=== PATIENT | female | born 1945 | race Caucasian/White ===

== ENCOUNTER 2016-12-26 21:30 | Inpatient (IN) | payer OTHER ==
[~2016-12-26] VITALS: Ht 152.4 cm; Wt 72.6 kg
--- NOTE | 2016-12-26 21:37 | NUR ---
71 YEAR OLD FEMALE BIBA FROM HOME C/O GENERALIZED WEAKNESS, N/V. EMS REPORTS PT HAD EPSIODE OF VOMITING AT 1600. PER EMS PT FOUND TO BE 92% ON RA AT HOME WITH IMPROVEMENT TO 95% VIA NC. FAMILY REPORTS PT IS BASELINE DEMENTIA BUT FEELS SHE IS MORE CONFUSED TODAY.
--- NOTE | 2016-12-26 21:40 | NUR ---
TEMP 100.9. CONGESTED COUGH NOTED. 94% ON RA WITH PULSE OX ON RT THUMB
--- NOTE | 2016-12-26 21:42 | ED GENERAL ADULT ---
History of Present Illness General Chief Complaint: General Adult Stated Complaint: BIBA, WEAKNESS Source: family Exam Limitations: confusion, dementia Vital Signs & Intake/Output Vital Signs & Intake/Output Vital Signs Date Time Temp Pulse Resp B/P Pulse O2 O2 Flow FiO2 Ox Delivery Rate 12/27 0003 100.5 85 18 134/64 96 Nasal 2.5L Cannula 12/27 0002 100.5 12/26 2247 96 Nasal 2.0L Cannula 12/265 102.0 87 16 140/80 96 Nasal 2.0L Cannula 12/26 2235 100.9 12/26 2139 100.9 92 20 146/66 94 Room Air ED Intake and Output 12/27 0000 12/26 1200 Intake Total 1000 Output Total Balance 1000 Intake, IV 1000 Patient 160 lb Weight Allergies Coded Allergies: No Known Drug Allergies (12/26/16) Reconcile Medications Alendronate Sodium 70 MG TABLET 1 TAB PO DAILY OSTEOPOROSIS (Reported) Amlodipine Besylate 2.5 MG TABLET 1 TAB PO QAM HTN (Reported) Atorvastatin Calcium 20 MG TABLET 1 TAB PO QHS CHOLESTEROL (Reported) Cholecalciferol (Vitamin D3) (Vitamin D) 2,000 UNIT CAPSULE 1 TAB PO DAILY SUPP (Reported) Metoprolol Tartrate 50 MG TABLET 1 TAB PO BID HTN (Reported) Sertraline HCl 25 MG TABLET 1 TAB PO DAILY DEPRESSION (Reported) Triage Note: 71 YEAR OLD FEMALE TANESHA FROM HOME C/O GENERALIZED WEAKNESS, N/V. EMS REPORTS PT HAD EPSIODE OF VOMITING AT 1600. PER EMS PT FOUND TO BE 92% ON RA AT HOME WITH IMPROVEMENT TO 95% VIA NC. FAMILY REPORTS PT IS BASELINE DEMENTIA BUT FEELS SHE IS MORE CONFUSED TODAY. Triage Nurses Notes Reviewed? yes Onset: Gradual Duration: getting worse Timing: recent history Severity: moderate Severity Numbers: 5 HPI: Patient is a 71-year-old female with a past medical history of hypertension hyperlipidemia and dementia which patient is Romansh speaking only however patient does present with family member-daughter who they both live in a private residence together which daughters concerned of a one day history of coughing and increased confusion and generalized weakness and fatigue. Patient did have one episode today of vomiting. Patient has had decreased by mouth intake. History is limited due to patient having as above stated past medical history and clinical presentation. No medications given for symptoms. Denies any similar sick contacts. (VISHAL MCDONALD,ANA PAULA) Past History Travel History Traveled to [place] past 21 day No Medical History Any Pertinent Medical History? see below for history Cardiovascular: hypertension, hyperlipidemia Other Medical Hx: DEMENTIA Surgical History Surgical History: non-contributory Family History Hx Contributory? No (ANA PAULA VALENTIN) Review of Systems Review of Systems Constitutional: Reports: see HPI, fever. EENTM: Reports: no symptoms. Respiratory: Reports: see HPI, cough. Cardiovascular: Reports: no symptoms. GI: Reports: see HPI, vomiting. Denies: abdominal pain. Genitourinary: Reports: no symptoms. Musculoskeletal: Reports: no symptoms. Skin: Reports: no symptoms. Neurological/Psychological: Reports: no symptoms. Hematologic/Endocrine: Reports: no symptoms. Immunologic/Allergic: Reports: no symptoms. All Other Systems: Reviewed and Negative (ANA PAULA VALENTIN) Physical Exam Physical Exam General Appearance: no apparent distress, alert, comfortable Respiratory: no respiratory distress, quiet respiration, decreased breath sounds Comments: HEENT: Normal EENT exam, extraocular motion intact, no nystagmus. Pupils equally round and reactive to light and accommodation. Nose is atraumatic. External auditory canal and Tympanic membranes clear. Pharynx normal. No swelling or edema. Neck: Supple, no lymphadenopathy, normal range of motion without pain or tenderness Back: Nontender, no CVA tenderness. Cardiovascular: Regular rate and rhythms no murmurs rubs or gallops, normal JVP Abdomen: Mild wincing noted upon abdominal palpation nondistended, no appreciable organomegaly. Normal bowel sounds. No ascites Extremity: No edema, no calf tenderness to palpation, normal and equal pulses. Neuro: Alert ORIENTED X 0, motor sensory normal, Skin: No appreciable rash on exposed skin, skin is warm and dry. Psych: Mood and affect is normal, memory and judgment is normal. Core Measures ACS in differential dx? No CVA/TIA Diagnosis: No Severe Sepsis Present: No Septic Shock Present: No (ANA PAULA VALENTIN) Progress Differential Diagnoses I considered the following diagnoses in my evaluation of the patient: [Sepsis, appendicitis, mesenteric ischemia, upper rest for infection, pneumonia, viral syndrome, cholecystitis, pancreatitis, diverticulitis,] Plan of Care: Orders Procedure Date/time Status LACTIC ACID 12/27 0104 Active Patient Data 12/27 0053 Active Admit to inpatient 12/27 0040 Active Admit to inpatient 12/27 0031 Active LOWER RESPIRATORY CULTURE 03/07 2206 Active RAPID VIRAL INFLUENZA A 12/26 2204 Complete CULTURE,URINE 12/27 2203 Active BLOOD CULTURE 12/27 2203 Active TROPONIN LEVEL 12/27 2203 Complete LIPASE 12/27 2203 Complete LACTIC ACID 12/27 2203 Complete COMPREHENSIVE METABOLIC PANEL 12/27 2203 Complete CBC WITHOUT DIFFERENTIAL 12/27 2203 Complete AMYLASE 12/27 2203 Complete URINALYSIS 12/26 2202 Complete Current Medications Sig/[place] Start time Last Medication Dose Stop Time Status Admin Azithromycin 500 MG ONCE ONE 12/27 0030 AC (Zithromax) 12/27 012 Dextrose/Water 250 ML (D5W) Laboratory Tests 12/26/162237: Anion Gap 12, Estimated GFR > 60, BUN/Creatinine Ratio 20.0, Glucose 173 H, Lactic Acid 1.2, Calcium 9.3, Total Bilirubin 0.4, AST 47 H, ALT 58 H, Alkaline Phosphatase 61, Troponin I < 0.01, Total Protein 7.9, Albumin 4.4, Globulin 3.5, Albumin/Globulin Ratio 1.3, Amylase 77, Lipase 154, CBC w Diff NO MAN DIFF REQ, RBC 3.81 L, MCV 87.4, MCH 29.4, RDW 14.9 H, MPV 8.7, Gran % 81.8 H, Lymphocytes % 11.7 L, Monocytes % 5.7, Eosinophils % 0.5, Basophils % 0.3, Absolute Granulocytes 12.4 H, Absolute Lymphocytes 1.8, Absolute Monocytes 0.9 H, Absolute Eosinophils 0.1, Absolute Basophils 0, PUBS MCHC 33.7 12/26/162203: Urinalysis LIGHT H, Urine Color YEL, Urine Clarity HAZY H, Urine pH 6.0, Ur Specific [place] >= 1.030, Urine Protein 100 H, Urine Ketones NEG, Urine Nitrite NEG, Urine Bilirubin NEG, Urine Urobilinogen 0.2, Ur Leukocyte Esterase NEG, Ur Microscopic SEDIMENT EXAMINED, Urine RBC 1-3, Urine WBC RARE, Ur Epithelial Cells FEW, Urine Bacteria RARE H, Urine Mucus FEW, Urine Hemoglobin MOD H, Urine Glucose NEG Microbiology 12/26 2244 NASOPHARYN: Influenza Virus A & B Rapid Smear - COMP 12/27 2239 BLOOD: Blood Culture - RECD 12/26 2229 BLOOD: Blood Culture - RECD 12/26 2205 LOWER RESP: Respiratory Culture - ORD 12/26 2205 LOWER RESP: Gram Stain - ORD 12/27 2203 URINE ROUT: Urine Culture - RECD Patient currently is in no apparent distress. Patient was able to follow commands and no concerns at this time of TIA or CVA. Patient was noted to have fever Patient was given IV fluid resuscitation and IV acetaminophen and Zofran. I discussed results of chest x-ray and blood and urine with daughter in which at this time there is no source of patient's clinical presentation. CT scan currently is pending CT scan was remarkable for concerns of left lobe pneumonia. Discussed disposition and plan with family member who agrees. (VISHAL MCDONALD,ANA PAULA) Diagnostic Imaging: Viewed by Me: Radiology Read, CT Scan. Radiology Impression: SEE COMMENTS Initial ED EKG: none Comments: PATIENT: SRIKANTH CUEVAS PRESENT AGE: 71 PATIENT ACCOUNT NO: [id number] : 43 LOCATION: [facility] ORDERING PHYSICIAN: ANA PAULA MCDONALD SERVICE DATE: 12/26/16 EXAM TYPE: CAT - CT ABD & PELVIS W IV CONTRAST EXAMINATION: CT ABDOMEN AND PELVIS WITH CONTRAST CLINICAL INFORMATION: Fever, abdominal pain COMPARISON: None TECHNIQUE: Multidetector volumetric imaging was performed of the abdomen and pelvis before and after the IV administration of 93 mL of Optiray 320 intravenous contrast. Sagittal and coronal reformatted images were obtained on the technologist's workstation. DLP: 458.39 mGy-cm FINDINGS: LUNG BASES: There are patchy regions of consolidation in the lingula and left lower lobe, suspicious for pneumonia. LIVER, GALLBLADDER, AND BILIARY TREE: The liver is normal in size, shape, and attenuation. No focal hepatic lesion or biliary ductal dilatation is present. The gallbladder is unremarkable. PANCREAS: Unremarkable. SPLEEN: Unremarkable. ADRENAL GLANDS: Unremarkable. KIDNEYS AND URETERS: The kidneys are normal in size, shape, and attenuation. No hydronephrosis, hydroureter, or calculi seen. No perinephric stranding. BLADDER: Unremarkable. GASTROINTESTINAL TRACT: No evidence of bowel obstruction. No abnormal bowel wall thickening is seen, although assessment in some segments of the colon is limited due to luminal decompression. No appreciable pericolonic inflammation. There is a moderate to large amount of stool in the rectum. The appendix is suspected to be collapsed. No free fluid or free air is seen. ABDOMINAL WALL: No significant hernia is appreciated. LYMPH NODES: Normal. VASCULAR: Scattered atherosclerotic calcifications are present. PELVIC VISCERA: Unremarkable. OSSEOUS STRUCTURES: Degenerative changes are noted in the spine. IMPRESSION: 1. Patchy regions of pulmonary consolidation in the lingula and left lower lobe, suspicious for pneumonia. 2. Moderate to large amount of stool in the rectum, which could reflect fecal impaction. No evidence of bowel obstruction or inflammation. DICTATED BY: MARII AMBRIZ MD DATE/TIME DICTATED:12/27/166 VICE PRESIDENT SAFETY:DORIS DATE/TIME TRANSCRIBED:12/27/166 PATIENT: SRIKANTH CUEVAS PRESENT AGE: 71 PATIENT ACCOUNT NO: [id number] : 43 LOCATION: [facility] ORDERING PHYSICIAN: ANA PAULA MCDONALD SERVICE DATE: 12/26/16 EXAM TYPE: CAT - CT ABD & PELVIS W IV CONTRAST EXAMINATION: CT ABDOMEN AND PELVIS WITH CONTRAST CLINICAL INFORMATION: Fever, abdominal pain COMPARISON: None TECHNIQUE: Multidetector volumetric imaging was performed of the abdomen and pelvis before and after the IV administration of 93 mL of Optiray 320 intravenous contrast. Sagittal and coronal reformatted images were obtained on the technologist's workstation. DLP: 458.39 mGy-cm FINDINGS: LUNG BASES: There are patchy regions of consolidation in the lingula and left lower lobe, suspicious for pneumonia. LIVER, GALLBLADDER, AND BILIARY TREE: The liver is normal in size, shape, and attenuation. No focal hepatic lesion or biliary ductal dilatation is present. The gallbladder is unremarkable. PANCREAS: Unremarkable. SPLEEN: Unremarkable. ADRENAL GLANDS: Unremarkable. KIDNEYS AND URETERS: The kidneys are normal in size, shape, and attenuation. No hydronephrosis, hydroureter, or calculi seen. No perinephric stranding. BLADDER: Unremarkable. GASTROINTESTINAL TRACT: No evidence of bowel obstruction. No abnormal bowel wall thickening is seen, although assessment in some segments of the colon is limited due to luminal decompression. No appreciable pericolonic inflammation. There is a moderate to large amount of stool in the rectum. The appendix is suspected to be collapsed. No free fluid or free air is seen. ABDOMINAL WALL: No significant hernia is appreciated. LYMPH NODES: Normal. VASCULAR: Scattered atherosclerotic calcifications are present. PELVIC VISCERA: Unremarkable. OSSEOUS STRUCTURES: Degenerative changes are noted in the spine. IMPRESSION: 1. Patchy regions of pulmonary consolidation in the lingula and left lower lobe, suspicious for pneumonia. 2. Moderate to large amount of stool in the rectum, which could reflect fecal impaction. No evidence of bowel obstruction or inflammation. PATIENT: SRIKANTH CUEVAS PRESENT AGE: 71 PATIENT ACCOUNT NO: [id number] : 43 LOCATION: [facility] ORDERING PHYSICIAN: ANA PAULA MCDONALD SERVICE DATE: 12/26/16 EXAM TYPE: RAD - XRY-CHEST XRAY, PA AND LATERAL EXAMINATION: XR CHEST CLINICAL INFORMATION: Cough and fever. COMPARISON: None TECHNIQUE: 2 views of the chest were obtained. FINDINGS: Heart size is enlarged. No pulmonary vascular congestion. Lungs are clear. No pleural effusion or pneumothorax. IMPRESSION: Cardiomegaly. No acute change of the chest. (ANA PAULA VALENTIN) Departure Departure Disposition: STILL A PATIENT Condition: Stable Clinical Impression Primary Impression: Pneumonia Referrals: LUDMILA SINGH (PCP/Family) Departure Forms: Customer Survey General Discharge Information Admission Note [facility] Documentation of Exam: Documentation of any treatments & extenuating circumstances including Concerns Regarding Discharge (functional status, medication knowledge or non-compliance, living conditions, etc.) that warrant an admission rather than observation: [ Discussed patient with Dr. PARTIDA who agrees with general medicine admission for current concerns of pneumonia, patient requires IV antibiotics, IV fluid resuscitation repeat labs. Outpatient treatment at this time would be medically harmful] (ANA PAULA VALENTIN) PA/LOAD DISPATCHER Co-Sign Statement Statement: ED Attending supervision documentation- [X] I saw and evaluated the patient. I have also reviewed all the pertinent lab results and diagnostic results. I agree with the findings and the plan of care as documented in the PA's/LOAD DISPATCHER's documentation. [X] I have reviewed the ED Record and agree with the PA's/LOAD DISPATCHER's documentation. [] Additions or exceptions (if any) to the PAs/LOAD DISPATCHER's note and plan are summarized below: [] (JAME LUO,ÁNGEL Lozada) Critical Care Note Critical Care Note Critical Care Time: non-applicable (ANA PAULA VALENTIN)
--- NOTE | 2016-12-26 22:13 | NUR ---
PT TO RADIOLOGY VIA STRETCHER AND INFORMED OF LABS AND MEDICATIONS ORDERED UPON RETURN
--- NOTE | 2016-12-26 22:34 | RADIOLOGY REPORT ---
EXAMINATION: XR CHEST CLINICAL INFORMATION: Cough and fever. COMPARISON: None TECHNIQUE: 2 views of the chest were obtained. FINDINGS: Heart size is enlarged. No pulmonary vascular congestion. Lungs are clear. No pleural effusion or pneumothorax. IMPRESSION: Cardiomegaly. No acute change of the chest.
--- NOTE | 2016-12-26 22:50 | NUR ---
IV ESTABLISHED, NS IVF BOLUS RUNNING AND MEDICATED WITH ZOFRAN AND TYLENOL PER EMAR FOR FEVER 102.0. SINUS RATE 80'S ON CM. NO ACTIVE VOMITING AT THIS TIME. TITRATION TO 2LNC TOLERATED WELL O2 SAT 96-97%. NO ACUTE RESP DISTRESS, WET COUGH NOTED WITHOUT EXPECTORATION OF SPUTUM. FLU SWAB OBTAINED AND SENT TO LAB. LABS DRAWN AND SENT (BLUE, SST X 2, LAV, PRASAD, CULTURES X2 SETS). DAUGHTER PRESENT FOR EMOTIONAL COMFORT. PT SMILING AND IN GOOD SPIRITS AT THIS TIME.
[2016-12-26 22:54] LABS: ABSOLUTE BASOPHIL COUNT 0 /CUMM (0.0-0.2); ABSOLUTE EOSINOPHIL COUNT 0.1 /CUMM (0.0-0.7); ABSOLUTE GRANULOCYTE CT 12.4 /CUMM (1.4-6.5); ABSOLUTE LYMPH COUNT 1.8 /CUMM (1.2-3.4); ABSOLUTE MONOCYTE COUNT 0.9 /CUMM (0.10-0.60); BASOPHIL % 0.3 % (0.0-2.0); EOSINOPHIL % 0.5 % (0-5); GRANULOCYTE % 81.8 % (42.2-75.2); HEMATOCRIT 33.3 % (37-47); MEAN CORPUSCULAR HGB 29.4 PG (27.0-31.0); MEAN CORPUSCULAR HGB CONC 33.7 G/DL (33.0-37.0); MEAN CORPUSCULAR VOLUME 87.4 FL (81.0-99.0); MEAN PLATELET VOLUME 8.7 FL (7.4-10.4); PLATELET COUNT 205 /CUMM (130-400); RBC DISTRIBUTION WIDTH 14.9 % (11.5-14.5); RED BLOOD CELL CT 3.81 /CUMM (4.20-5.40); WHITE BLOOD CELL COUNT 15.2 /CUMM (4.8-10.8)
[2016-12-26] MEDS ORDERED: METOPROLOL TART50 M1 PO (22:55)
[2016-12-26] MEDS ORDERED: AMLODIPINE BES2.5 M1 PO (22:55)
[2016-12-26] MEDS ORDERED: SERTRALINE HCL25 MG PO (22:56)
[2016-12-26] MEDS ORDERED: ATORVASTATIN CA20 M1 PO (22:57)
[2016-12-26] MEDS ORDERED: ALENDRONATE SOD70 M2 PO (22:58)
[2016-12-26] MEDS ORDERED: VITAMIN D2000 UNIT PO (22:59)
--- NOTE | 2016-12-26 23:41 | NUR ---
PATIENT TO CT BY STRETCHER AT THIS TIME.
--- NOTE | 2016-12-27 00:03 | NUR ---
PATIENT RETURNED FROM CT BY STRETCHER, CURRENT TEMP 100.5, SKIN HOT TO TOUCH. NO DIAPHORESIS NOTED.
--- NOTE | 2016-12-27 00:21 | CT SCAN REPORT ---
EXAMINATION: CT ABDOMEN AND PELVIS WITH CONTRAST CLINICAL INFORMATION: Fever, abdominal pain COMPARISON: None TECHNIQUE: Multidetector volumetric imaging was performed of the abdomen and pelvis before and after the IV administration of 93 mL of Optiray 320 intravenous contrast. Sagittal and coronal reformatted images were obtained on the technologist's workstation. DLP: 458.39 mGy-cm FINDINGS: LUNG BASES: There are patchy regions of consolidation in the lingula and left lower lobe, suspicious for pneumonia. LIVER, GALLBLADDER, AND BILIARY TREE: The liver is normal in size, shape, and attenuation. No focal hepatic lesion or biliary ductal dilatation is present. The gallbladder is unremarkable. PANCREAS: Unremarkable. SPLEEN: Unremarkable. ADRENAL GLANDS: Unremarkable. KIDNEYS AND URETERS: The kidneys are normal in size, shape, and attenuation. No hydronephrosis, hydroureter, or calculi seen. No perinephric stranding. BLADDER: Unremarkable. GASTROINTESTINAL TRACT: No evidence of bowel obstruction. No abnormal bowel wall thickening is seen, although assessment in some segments of the colon is limited due to luminal decompression. No appreciable pericolonic inflammation. There is a moderate to large amount of stool in the rectum. The appendix is suspected to be collapsed. No free fluid or free air is seen. ABDOMINAL WALL: No significant hernia is appreciated. LYMPH NODES: Normal. VASCULAR: Scattered atherosclerotic calcifications are present. PELVIC VISCERA: Unremarkable. OSSEOUS STRUCTURES: Degenerative changes are noted in the spine. IMPRESSION: 1. Patchy regions of pulmonary consolidation in the lingula and left lower lobe, suspicious for pneumonia. 2. Moderate to large amount of stool in the rectum, which could reflect fecal impaction. No evidence of bowel obstruction or inflammation.
--- NOTE | 2016-12-27 01:22 | NUR ---
HOUSE STAFF AT BEDSIDE FOR EVAL. POC TO ADMIT TO .
--- NOTE | 2016-12-27 01:49 | History & Physical ---
VLADISLAV LUO,[facility] 12/27/16 0149: General Information and HPI MD Statement: I have seen and personally examined SRIKANTH CUEVAS and documented this H&P. The patient is a 71 year old F who presented with a patient stated chief complaint of cough. Source of Information: family Exam Limitations: language barrier History of Present Illness: This is a 71-year-old Dominican speaking lady with past medical history of early stage dementia, hypertension, hyperlipidemia is presented to [facility] ED by her daughter for evaluation of cough, malaise, and confusion. Patient only speaks Dominican and therefore the entire history was obtained from her daughter was at bedside. Patient's daughter reports that for the past 1-2 days patient has developed a cough which has progressively worsened. There is sputum production with the cough however daughter is not able to describe or quantify. Associated symptoms included fever, nausea and vomiting, and what appeared to be a very transient episode of right-sided weakness including left- sided extremity and some mouth droop. Patient is also reported to have had some altered mental status with confusion. She denies any recent infection, sick contact, recent travel, chest pain, palpitation, abdominal pain or dysuria. He is reported to be current with her vaccination including yearly influenza. At Baseline patient is independent with her activities of daily living, ambulates freely with no walking aid, and lives with her daughter. Allergies/Medications Allergies: Coded Allergies: No Known Drug Allergies (12/26/16) Home Med list Alendronate Sodium 70 MG TABLET 1 TAB PO DAILY OSTEOPOROSIS (Reported) Amlodipine Besylate 2.5 MG TABLET 1 TAB PO QAM HTN (Reported) Atorvastatin Calcium 20 MG TABLET 1 TAB PO QHS CHOLESTEROL (Reported) Cholecalciferol (Vitamin D3) (Vitamin D) 2,000 UNIT CAPSULE 1 TAB PO DAILY SUPP (Reported) Metoprolol Tartrate 50 MG TABLET 1 TAB PO BID HTN (Reported) Sertraline HCl 25 MG TABLET 1 TAB PO DAILY DEPRESSION (Reported) Past History Travel History Traveled to [place] past 21 day No Medical History Neurological: dementia EENT: NONE Cardiovascular: hypertension, hyperlipidemia Respiratory: NONE Gastrointestinal: NONE Hepatic: NONE Renal: NONE Musculoskeletal: NONE Psychiatric: NONE Endocrine: NONE Blood Disorders: NONE Cancer(s): NONE Other Medical Hx: DEMENTIA Surgical History Surgical History: non-contributory Past Family/Social History Psychosocial History ETOH Use: denies use Illicit Drug Use: denies illicit drug use Review of Systems Review of Systems Constitutional: Reports: see HPI. EENTM: Denies: blurred vision, double vision, eye pain. Cardiovascular: Denies: chest pain, edema, orthopena, palpitations, peripheral edema. Respiratory: Reports: cough, short of breath. GI: Denies: constipation, diarrhea, bowel incontinence. Genitourinary: Denies: hematuria, hesitation, nocturia, pain. Musculoskeletal: Denies: joint pain, joint swelling, muscle pain. Skin: Denies: change in skin color, change in hair/nails, dryness, erythema, jaundice. Neurological/Psychological: Reports: confusion. Hematologic/Endocrine: Reports: no symptoms. Immunologic/Allergic: Reports: no symptoms. Exam & Diagnostic Data Last 24 Hrs of Vital Signs/I&O Vital Signs Date Time Temp Pulse Resp B/P Pulse O2 O2 Flow FiO2 Ox Delivery Rate 12/27 0233 100.9 90 20 153/66 93 Room Air 12/27 0003 100.5 85 18 134/64 96 Nasal 2.5L Cannula 12/27 0002 100.5 12/26 2247 96 Nasal 2.0L Cannula 12/26 2245 102.0 87 16 140/80 96 Nasal 2.0L Cannula 12/26 2235 100.9 12/26 2139 100.9 92 20 146/66 94 Room Air Intake & Output 12/27 0800 12/27 0000 12/26 1600 Intake Total 1000 Output Total 600 Balance -600 1000 Intake, IV 1000 Output, Urine 600 Patient 72.575 kg Weight Physical Exam General Appearance Alert, Oriented X3, Cooperative Skin No Significant Lesion HEENT dry oral mucosa Neck Supple, No JVD, No thryomegaly Lymphatic Cervical nl Cardiovascular Regular Rate, Normal S1, Normal S2 Lungs bilateral rhonchi Abdomen Soft, No Tenderness Neurological Normal Speech, Strength at 5/5 X4 Ext, Normal Tone, Sensation Intact, Cranial Nerves 3-12 NL, no focality noted Extremities No Cyanosis, No Edema, Normal Pulses, No Tenderness/Swelling, brisk capillary refill Assessment/Plan Assessment: This is a 71-year-old lady with a history of hypertension, dementia, hyperlipidemia is presenting for evaluation of cough, malaise, and acute onset of confusion. Patient was found to be febrile on admission and also required 2 L of oxygen to maintain sats above 92%. Initial chest x-ray was unremarkable however CT abdomen and pelvis was suggestive of acute findings of pneumonia. Rapid flu test was negative. Regarding her right-sided weakness including some mouth droop , patient reports the episode to have been transient and did not last long. During examination the ED no focality was noted. Pt has clinical symptoms of cough, fever and radiological findings of CAP. Patient exhibited a curb score of 2 with confusion and age above 65 as the positive findings. She was therefore admitted to [facility] floor for treatment and management of community-acquired pneumonia. Assessment and plan Community-acquired pneumonia Positive clinical symptoms, fever, leukocytosis and radiological findings. Curb score 2. Plan * Admitted to [facility] floor * IV ceftriaxone and azithromycin for community acquired pneumonia * Sputum cultures * Legionella and strep urine antigen * Guaifenesin 600 mg ER twice a day * PT tomorrow morning #Acute hypoxic respiratory failure Most likely secondary to pneumonia.Patient is normally not on any O2 supplementation at home. At the ED patient required 2 L to keep sats above 88%. Plan * O2 supplementation to keep sats above 88%. #Right-sided weakness Most likely secondary to malaise from infection. No focality was noted during physical examination. We'll have neuro checks every 6 hours for now. #Constipation CT abdomen and pelvis suggestive of fecal impaction. Plan Aggressive bowel regimen with MiraLAX, Colace, and Dulcolax suppository if needed. #History of hypertension Continue home meds #History of hyperlipidemia Continue home meds . As Ranked By This Provider Problem List: 1. Pneumonia Core Measures/Miscellaneous Acute Coronary Syndrome ACS Diagnosis: No Cerebrovascular Accident CVA/TIA Diagnosis: No Congestive Heart Failure CHF Diagnosis: No Venous Thromboembolism VTE Risk Factors: Age > 40 No [facility] VTE prophylaxis d/t: No contraindications No VTE Pharm Prophylaxis d/t: No contraindications VTE Diagnosis: No VTE Type: NONE VTE Confirmed by (Test): NONE Severe Sepsis Severe Sepsis Present: No Septic Shock Septic Shock Present: No Miscellaneous Documentation Attending Case Discussed With: AURELIANO PARTIDA MD Primary Care Physician: LUDMILA SINGH Patient sees these Specialists .. Level of Patient Care: General Medicine JOSH PARTIDA MD 12/27/16 0155: Attending MD Review Statement Attending Statement Attending Statement: examined this patient, discuss w/resident/PA/RESOURCE CENTER TEACHER, agreed w/resident/PA/RESOURCE CENTER TEACHER, discussed with family Attending Assessment/Plan: 71 yo Dominican speaking F with dementia, HTN, HLD, seasonal allergies, osteoporosis, is brought in by daughter for 2-day h/o weakness, confusion, vomiting, productive cough and fever (100.9). History provided by daughter who felt that patient may be having a stroke, as she thinks she saw a facial droop and right sided weakness. However, on ER arrival, no concerns for TIA or CVA. Sick contacts+ (patient's granddaughter), no recent travel. She received flu vaccine. Vitals: Tmax 102, HR 80-90's, BP 134/64, sats 93% RA --> 96% on 2L. Exam: Awake, difficult to assess orientation due to language barrier, daughter reports patient recognizes her. Ill-appearing female. Chest bibasilar rhonchi++ (L>R). Labs: WBC 15.2, lactic acid 1.2, AST 47, ALT 58, trop neg. Flu swab neg. UA proteinuria. CXR: Cardiomegaly. CT abd/pelvis: no acute abnormality in abdomen. Patchy regions of pulmonary consolidation in the lingula and left lower lobe, suspicious for pneumonia. 1. Sepsis 2/2 community acquired pneumonia. GM admit, TRC nebs, panculture, IV ceftriaxone and azithro, urine legionella and strep Ag, Mucinex, IV fluids. Avoid delirium triggers, avoid sedative meds, frequent orientation. Daughter stated that she would stay with the patient most of the time as patient does not understand the language and may get agitated due to underlying dementia. Monitor neurochecks Q6. Obtain baseline EKG. 2. Treat constipation. Continue home meds amlodipine, metoprolol, sertraline, atorvastatin. 3. Transaminitis in the setting sepsis. Trend LFTs. DVT ppx Lovenox. Full code. MARGI LORA 12/27/16 0206: Resident Review Statement Resident Statement: examined this patient, discussed with electrical intern, agreed with electrical intern, discussed with family Other Findings: Patient is a 71-year-old female Dominican speaking woman with past medical history significant for hypertension, hyperlipidemia, dementia was brought in to the ED by her family with concerns of worsening cough, weakness and lethargic with acute confusion. Most of the history was obtained from the daughter. She reported that patient has been having cough for the last 1 day, gotten worse today associated with nausea /vomiting, fever and acute episode of right-sided weakness, that resolved quickly. The daughter reported that became confused over the course of time, was brought to the ED for further assessment. Decreased oral intake for the last 24-48 hours. Daughter denied any sick contacts recent travels she is up-to-date with her vaccines. Vitals on admission temperature 100.9, pulse 92, respiratory rate 20, blood pressure 146/66 saturating more than 92% on on 2 L. On examination General Appearance: Alert and oriented 3 , not in acute distress Skin: Grossly normal HEENT: PEERLA Neck: Supple, No JVD Cardiovascular: Regular Rate, Normal S1, Normal S2, No Murmurs Lungs: Decreased respirations with some rhonchi on the left lower lung bases. Abdomen: Normal Bowel Sounds, without any tenderness, Extremities: No evidence of any lower extremity swelling/injuries. Vascular: Normal Pulse Pertinent labs on admission Leukocytosis 15.2 with left shift, H&H low at 11.2/33.3 with normal MCV(H&H close to baseline ), mild transaminitis, rapid flu negative CT abdomen and pelvis :Patchy regions of pulmonary consolidation in the lingula and left lower lobe, suspicious for pneumonia.Patchy regions of pulmonary consolidation in the lingula and left lowe lobe, suspicious for pneumonia. Assessment and plan: 1. Acute hypoxic respiratory failure due to Community-acquired pneumonia: * We'll admit the patient is a [facility] floor * Start the patient on IV ceftriaxone and azithromycin for community core pneumonia * Blood cultures and sputum cultures have been sent * Robitussin as needed for cough * Zofran for nausea * Continue oxygen saturations above 92% * Continue gentle hydration. 2. Acute right-sided transient weakness: * Resolved now * Continue with neuro checks every 6 hours. 3. Chronic constipation with CT abdomen and pelvis findings consistent with fecal impaction: * Start the patient on MiraLAX, senna as needed milk of magnesia for constipation. 4. History of hypertension and lipidemia * Continue home medications. 5 History of dementia with anxiety * Continue home dose of Zoloft. Mild to moderate pain controlled with IV Tylenol and ibuprofen. DVT prophylaxis with subcutaneous Lovenox Full code
--- NOTE | 2016-12-27 01:56 | Admission Certification ---
Admission Certification Certification Statement - As attending physician, I certify that at the time of - admission, based on clinical presentation, severity of - symptoms, need for further diagnostic testing and - therapeutic interventions, and risk of adverse outcomes - without in-hospital treatment, in my clinical assessment, - this patient requires an acute hospital stay for a minimum - of two nights or longer. I have also considered psychsocial - factors such as support system, advanced age, financial - issues, cognitive issues, and failed out-patient treatments, - past re-admission history, safety of patient, and lack of - compliance as applicable. Specific rationale supporting this admission is: Sepsis 2/2 community acquired pneumonia.
--- NOTE | 2016-12-27 02:00 | NUR ---
PATIENT MEDICATED W/ ROCEPHIN AND ZITHROMAX PER EMAR. TOLERATED WELL.
--- NOTE | 2016-12-27 02:28 | NUR ---
EKG COMPLETED. PATIENT NOTED TO BE VOMITTING AT THIS TIME, SMALL AMOUNT. ORDERS REVIEWED, ZOFRAN Q8 PRN ORDER TO SOON TO BE ADMINISTERED D/T GIVEN AT APPROX 2230. (BEEPER 211) PAGED.
--- NOTE | 2016-12-27 04:26 | NUR ---
PATIENT MOVED INTO HOSPITAL BED AT THIS TIME, ASSISTED TO COMMODE W/ ONE PERSON. DAUGHTER REMAINS AT BEDSIDE, PROVIDED RECLINER PER REQUEST.
--- NOTE | 2016-12-27 05:51 | NUR ---
JOSEFA INITIATED AND JOZEF.
--- NOTE | 2016-12-27 06:04 | NUR ---
BLOODWORK OBTAINED AND SENT TO LAB (LAV, SST, BLUE, [facility]).
[2016-12-27 06:13] LABS: ABSOLUTE BASOPHIL COUNT 0 /CUMM (0.0-0.2); ABSOLUTE EOSINOPHIL COUNT 0 /CUMM (0.0-0.7); ABSOLUTE LYMPH COUNT 1.5 /CUMM (1.2-3.4); BASOPHIL % 0 % (0.0-2.0); EOSINOPHIL % 0.1 % (0-5); GRANULOCYTE % 84.6 % (42.2-75.2); MEAN CORPUSCULAR HGB 29.4 PG (27.0-31.0); MEAN CORPUSCULAR HGB CONC 34.1 G/DL (33.0-37.0); MEAN CORPUSCULAR VOLUME 86.3 FL (81.0-99.0); MEAN PLATELET VOLUME 8.5 FL (7.4-10.4); PLATELET COUNT 172 /CUMM (130-400); RBC DISTRIBUTION WIDTH 14.4 % (11.5-14.5); RED BLOOD CELL CT 3.36 /CUMM (4.20-5.40); WHITE BLOOD CELL COUNT 16.5 /CUMM (4.8-10.8)
--- NOTE | 2016-12-27 06:41 | NUR ---
PATIENT NOTED TO HAVE GOTTEN SELF OUT OF BED TO USE COMMODE, SMALL AMOUNT OF URINE NOTED ON FLOOR, FLOOR CLEANED. VSS.
--- NOTE | 2016-12-27 07:01 | NUR ---
NS INITIATED AT 75ML/HR PER EMAR. TOLERATING WELL. CONTINUES TO REST COMFORTABLY ON HOSPITAL BED W/O COMPLAINTS.
--- NOTE | 2016-12-27 07:16 | NUR ---
ASSUMED CARE OF PT WHO IS CURRENTLY SLEEPING. RR EVEN AND UNLABORED. NS INFUSING AT 75/HR ON DIAL A FLOW. DAUGHTER OF PT ON RECLINER CHAIR IN ROOM. WILL CTM
--- NOTE | 2016-12-27 07:48 | NUR ---
PT GIVEN BREAKFAST TRAY. PT REPOSITIONED IN BED FOR COMFORT. DAUGHTER AND SON AT BEDSIDE TO ASSIST WITH BREAKFAST. WILL CTM
[2016-12-27 08:15] VITALS: BP 135/58
[2016-12-27 08:37] VITALS: BP 133/78
--- NOTE | 2016-12-27 09:19 | NUR ---
PT ASSISTED ONTO BEDSIDE COMMODE AND BACK INTO BED
--- NOTE | 2016-12-27 09:25 | PN- Housestaff ---
Subjective Follow-up For: Pneumonia Complaints: no complaints Subjective: Seen and examined at bedside. albaninan speaking female. Through network relations consultant, her daughter reports feeling better. Several episodes of vomiting overnight, that has now stopped. Reports eating breakfast this morning without issues, denies nausea futher vomiting episodes. Review of Systems Constitutional: Reports: fever, malaise. Denies: chills. EENTM: Denies: visual changes. Cardiovascular: Denies: chest pain, orthopena, palpitations. Respiratory: Reports: cough, short of breath, sputum production. Denies: hemoptysis. Gastrointestinal: Reports: constipation. Denies: abdominal pain, diarrhea, distention, nausea, vomiting. Genitourinary: Reports: no symptoms. Skin: Reports: change in skin color. Objective Last 24 Hrs of Vital Signs/I&O Vital Signs Date Time Temp Pulse Resp B/P Pulse O2 O2 Flow FiO2 Ox Delivery Rate 12/28 0737 98.3 80 20 133/78 96 Nasal 2.0L Cannula 12/27 0827 98.3 80 133/78 12/27 0815 100.5 81 18 135/58 97 Nasal 2.0L Cannula 12/27 0640 100.5 81 18 135/58 97 Nasal 2.5L Cannula 12/27 0546 94 Nasal 2.5L Cannula 12/27 0233 100.9 90 20 153/66 93 Room Air 12/27 0003 100.5 85 18 134/64 96 Nasal 2.5L Cannula 12/27 0002 100.5 12/26 2247 96 Nasal 2.0L Cannula 12/26 2245 102.0 87 16 140/80 96 Nasal 2.0L Cannula 12/26 2235 100.9 12/26 2139 100.9 92 20 146/66 94 Room Air Intake & Output 12/27 1600 08 0800 12/27 0000 Intake Total 1000 Output Total 600 Balance -600 1000 Intake, IV 1000 Output, Urine 600 Patient 160 lb 160 lb Weight Physical Exam General Appearance: Alert, Cooperative, No Acute Distress Skin: No Rashes, No Breakdown HEENT: Atraumatic, PERRLA, EOMI, Mucous Membr. moist/pink Neck: Supple Lymphatic: Cervical nl Cardiovascular: Regular Rate, Normal S1, Normal S2, No Murmurs Lungs: b/l rhonchi Abdomen: Normal Bowel Sounds, Soft, No Tenderness Neurological: Normal Speech, Strength at 5/5 X4 Ext Extremities: No Edema, Normal Pulses Vascular: Normal Pulses Current Medications: Current Medications Sig/[place] Start time Last Medication Dose Route Stop Time Status Admin Acetaminophen 650 MG Q6P PRN 12/27 0200 AC PO Acetaminophen 1,000 MG Q6P PRN 12/27 0200 AC IV Acetaminophen 1,000 MG ONCE ONE 12/265 DC 12/26 N/A 1 UNIT IV 12/269 2235 Acetaminophen 0 .STK-MED ONE 12/26 2214 DC IV Amlodipine Besylate 2.5 MG QAM 12/27 1000 AC PO Atorvastatin Calcium 20 MG 1700 12/27 1700 AC PO Azithromycin 500 MG DAILY 12/27 1000 AC Dextrose/Water 250 ML IV Azithromycin 500 MG ONCE ONE 12/27 0030 DC 12/27 Dextrose/Water 250 ML IV 12/27 0129 0135 Ceftriaxone Sodium 1,000 MG DAILY 12/27 1000 AC IV Ceftriaxone Sodium 0 .STK-MED ONE 12/27 0127 DC .ROUTE Ceftriaxone Sodium 1,000 MG ONCE ONE 12/27 0030 DC 12/27 IV 12/27 0031 0135 Enoxaparin Sodium 40 MG DAILY 12/27 1000 AC SC Guaifenesin 10 ML Q6P PRN 12/27 0245 AC PO Ibuprofen 600 MG Q6P PRN 12/27 0200 AC PO Magnesium Hydroxide 30 ML ONE PRN 12/27 0245 AC PO Metoprolol Tartrate 50 MG BID 12/27 1000 AC PO Ondansetron HCl 4 MG Q8P PRN 12/27 0200 AC PO Ondansetron HCl 4 MG ONCE ONE 12/26 2214 DC 12/26 IV 12/26 221 2235 Ondansetron HCl 0 .STK-MED ONE 12/26 2214 DC .ROUTE Polyethylene Glycol 17 GM DAILY 12/27 1000 AC PO Senna/Docusate Sodium 2 TAB DAILY 12/27 1000 AC PO Sertraline HCl 25 MG DAILY 12/27 1000 AC PO Sodium Chloride 1,000 ML Q13H 12/27 0200 AC 12/27 IV 0701 Sodium Chloride 1,000 ML BOLUS ONE 12/26 2215 DC 12/26 IV 12/26 2314 2235 Last 24 Hrs of Lab/[facility] Results Last 24 Hrs of Labs/Mics: Laboratory Tests 12/27/16 0600: Anion Gap 12, Estimated GFR > 60, BUN/Creatinine Ratio 16.7, CBC w Diff MAN DIFF ORDERED, RBC 3.36 L, MCV 86.3, MCH 29.4, RDW 14.4, MPV 8.5, Gran % 84.6 H, Lymphocytes % 9.2 L, Monocytes % 6.1, Eosinophils % 0.1, Basophils % 0 L, Absolute Granulocytes 14.0 H, Segmented Neutrophils 60, Band Neutrophils 25 H, Absolute Lymphocytes 1.5, Lymphocytes 9 L, Monocytes 5, Absolute Monocytes 1.0 H, Absolute Eosinophils 0, Basophils 1, Absolute Basophils 0, Platelet Estimate ADEQUATE, Hypochromic-Microcytic 2+, Anisocytosis 1+, PUBS MCHC 34.1 12/27/16 0200: Lactic Acid 1.5 12/26/162237: Anion Gap 12, Estimated GFR > 60, BUN/Creatinine Ratio 20.0, Glucose 173 H, Lactic Acid 1.2, Calcium 9.3, Total Bilirubin 0.4, AST 47 H, ALT 58 H, Alkaline Phosphatase 61, Troponin I < 0.01, Total Protein 7.9, Albumin 4.4, Globulin 3.5, Albumin/Globulin Ratio 1.3, Amylase 77, Lipase 154, CBC w Diff NO MAN DIFF REQ, RBC 3.81 L, MCV 87.4, MCH 29.4, RDW 14.9 H, MPV 8.7, Gran % 81.8 H, Lymphocytes % 11.7 L, Monocytes % 5.7, Eosinophils % 0.5, Basophils % 0.3, Absolute Granulocytes 12.4 H, Absolute Lymphocytes 1.8, Absolute Monocytes 0.9 H, Absolute Eosinophils 0.1, Absolute Basophils 0, PUBS MCHC 33.7 12/26/162203: Urinalysis LIGHT H, Urine Color YEL, Urine Clarity HAZY H, Urine pH 6.0, Ur Specific [place] >= 1.030, Urine Protein 100 H, Urine Ketones NEG, Urine Nitrite NEG, Urine Bilirubin NEG, Urine Urobilinogen 0.2, Ur Leukocyte Esterase NEG, Ur Microscopic SEDIMENT EXAMINED, Urine RBC 1-3, Urine WBC RARE, Ur Epithelial Cells FEW, Urine Bacteria RARE H, Urine Mucus FEW, Urine Hemoglobin MOD H, Urine Glucose NEG Microbiology 12/26 2244 NASOPHARYN: Influenza Virus A & B Rapid Smear - COMP 12/27 2239 BLOOD: Blood Culture - RECD 12/26 2229 BLOOD: Blood Culture - RECD 12/26 2205 LOWER RESP: Respiratory Culture - COLB 12/26 2205 LOWER RESP: Gram Stain - COLB 12/27 2203 URINE ROUT: Urine Culture - RES Assessment/Plan Assessment: 71-year-old Belarusian speaking female with a history of hypertension, hyperlipidemia, seasonal allergies, osteoporosis, dementia presents with a two- day history of vomiting, cough with sputum production, and vomiting. Due to a language barrier, permission was obtained from daughter at bedside. This morning reports feeling better, had breakfast without any issues, no longer nauseous, denies any further vomiting episodes this morning. Still coughing, with minimal sputum production. Requiring 2 L of oxygen, reports not using oxygen at home. Chest x-ray negative, however CT demonstrating pulmonary consolidation in the lingula, and left lower lobe with suspicion of pneumonia, with elevated white count, and febrile on admission. Pneumonia Were treating for continue core pneumonia with ceftriaxone and azithromycin, started last night. We will continue this. Keep oxygen saturations greater than 92%, titrate oxygen accordingly. Follow-up on cultures that were sent. Constipation She's been started on a bowel regimen. The constipation may be inducing an element of increased confusion. We will need to monitor this. Transaminitis AST and ALT mildly elevated, this could be secondary to infection or due to statin use We will trend LFTs Hypertension Continue home medications, blood pressure well-controlled 133/78 Right-sided weakness ? Secondary to ongoing infection. Has resolved. Moving limbs appropriately. We will continue neuro checks today. DVT prophylaxis Lovenox Problem List: 1. Pneumonia 2. Hyperlipidemia 3. Hypertension 4. Temporary limb weakness Pain Ratin Pain Location: no pain Pain Goal: Remain pain free Pain Plan: cont current managament Tomorrow's Labs & Rationales: cbc lft
[2016-12-27 10:10] VITALS: BP 126/58
--- NOTE | 2016-12-27 10:27 | NUR ---
PT ASSISTED ONTO BEDSIDE COMMODE BY MARITZA ADAN. DAUGHTER OF PT RETURNS TO ED AND IS AT BEDSIDE
--- NOTE | 2016-12-27 10:30 | PN- Att Addend ---
Attending Addendum Attending Brief Note Patient seen and examined. Plan of care discussed with the medical team and the patient. Available lab work and radiology test reports were reviewed. Patient does not speak Turkish. She is currently awake and does not appear to be in distress. There were no family member present at the time. Vital Signs Date Time Temp Pulse Resp B/P Pulse O2 O2 Flow FiO2 Ox Delivery Rate 12/27 1010 98.7 73 20 126/58 96 Nasal 2.0L Cannula 12/27 0939 98.3 80 20 140/83 12/27 0939 98.3 80 20 140/83 / 0837 98.3 80 20 133/78 96 Nasal 2.0L Cannula 12/27 0827 98.3 80 133/78 12/27 0815 100.5 81 18 135/58 97 Nasal 2.0L Cannula 12/27 0640 100.5 81 18 135/58 97 Nasal 2.5L Cannula 12/27 0546 94 Nasal 2.5L Cannula 12/27 0233 100.9 90 20 153/66 93 Room Air 12/27 0003 100.5 85 18 134/64 96 Nasal 2.5L Cannula 12/27 0002 100.5 12/26 2247 96 Nasal 2.0L Cannula 12/26 2245 102.0 87 16 140/80 96 Nasal 2.0L Cannula 12/26 2235 100.9 12/26 2139 100.9 92 20 146/66 94 Room Air Intake & Output 12/27 1600 08 0800 12/27 0000 Intake Total 1000 Output Total 251 600 Balance -251 -600 1000 Intake, IV 1000 Output, Stool 1 Output, Urine 250 600 Patient 160 lb 160 lb Weight Exam: General: Patient awake alert oriented without any distress CVS: S1 plus S2 without any murmur or gallops Chest: Few scattered crepitation without any wheeze. There is no respiratory distress. Abdomen: Soft nontender, bowel sound present, no guarding or rebound LOAD TALLIER: Awake alert oriented without any focal neuro deficit and follows command appropriately Extremities: No edema; no clubbing or cyanosis noted Laboratory Tests 12/27 12/27 0600 0200 Chemistry Sodium (137 - 145 mmol/L) 135 L Potassium (3.5 - 5.1 mmol/L) 3.4 L Chloride (98 - 107 mmol/L) 100 Carbon Dioxide (22 - 30 mmol/L) 23 Anion Gap (5 - 16) 12 BUN (7 - 17 mg/dL) 10 Creatinine (0.5 - 1.0 mg/dL) 0.6 Estimated GFR (>60 ml/min) > 60 BUN/Creatinine Ratio (7 - 25 %) 16.7 Lactic Acid (0.7 - 2.1 mmol/L) 1.5 Hematology CBC w Diff MAN DIFF ORDERED WBC (4.8 - 10.8 /CUMM) 16.5 H RBC (4.20 - 5.40 /CUMM) 3.36 L Hgb (12.0 - 16.0 G/DL) 9.9 L Hct (37 - 47 %) 29.0 L MCV (81.0 - 99.0 FL) 86.3 MCH (27.0 - 31.0 PG) 29.4 RDW (11.5 - 14.5 %) 14.4 Plt Count (130 - 400 /CUMM) 172 MPV (7.4 - 10.4 FL) 8.5 Gran % (42.2 - 75.2 %) 84.6 H Lymphocytes % (20.5 - 51.1 %) 9.2 L Monocytes % (1.7 - 9.3 %) 6.1 Eosinophils % (0 - 5 %) 0.1 Basophils % (0.0 - 2.0 %) 0 L Absolute Granulocytes (1.4 - 6.5 /CUMM) 14.0 H Segmented Neutrophils (42.2 - 75.2 %) 60 Band Neutrophils (0.0 - 5.0 %) 25 H Absolute Lymphocytes (1.2 - 3.4 /CUMM) 1.5 Lymphocytes (20.5 - 51.1 %) 9 L Monocytes (1.7 - 9.3 %) 5 Absolute Monocytes (0.10 - 0.60 /CUMM) 1.0 H Absolute Eosinophils (0.0 - 0.7 /CUMM) 0 Basophils (0.0 - 2.0 %) 1 Absolute Basophils (0.0 - 0.2 /CUMM) 0 Platelet Estimate (ADEQUATE) ADEQUATE Hypochromic-Microcytic 2+ Anisocytosis 1+ PUBS MCHC (33.0 - 37.0 G/DL) 34.1 12/26 02/ 2238 2204 Chemistry Sodium (137 - 145 mmol/L) 136 L Potassium (3.5 - 5.1 mmol/L) 4.1 Chloride (98 - 107 mmol/L) 96 L Carbon Dioxide (22 - 30 mmol/L) 28 Anion Gap (5 - 16) 12 BUN (7 - 17 mg/dL) 14 Creatinine (0.5 - 1.0 mg/dL) 0.7 Estimated GFR (>60 ml/min) > 60 BUN/Creatinine Ratio (7 - 25 %) 20.0 Glucose (65 - 99 mg/dL) 173 H Lactic Acid (0.7 - 2.1 mmol/L) 1.2 Calcium (8.4 - 10.2 mg/dL) 9.3 Total Bilirubin (0.2 - 1.3 mg/dL) 0.4 AST (14 - 36 U/L) 47 H ALT (9 - 52 U/L) 58 H Alkaline Phosphatase (<127 U/L) 61 Troponin I (< 0.11 ng/ml) < 0.01 Total Protein (6.3 - 8.2 g/dL) 7.9 Albumin (3.5 - 5.0 g/dL) 4.4 Globulin (1.9 - 4.2 gm/dL) 3.5 Albumin/Globulin Ratio (1.1 - 2.2 %) 1.3 Amylase (30 - 110 U/L) 77 Lipase (23 - 300 U/L) 154 Hematology CBC w Diff NO MAN DIFF REQ WBC (4.8 - 10.8 /CUMM) 15.2 H RBC (4.20 - 5.40 /CUMM) 3.81 L Hgb (12.0 - 16.0 G/DL) 11.2 L Hct (37 - 47 %) 33.3 L MCV (81.0 - 99.0 FL) 87.4 MCH (27.0 - 31.0 PG) 29.4 RDW (11.5 - 14.5 %) 14.9 H Plt Count (130 - 400 /CUMM) 205 MPV (7.4 - 10.4 FL) 8.7 Gran % (42.2 - 75.2 %) 81.8 H Lymphocytes % (20.5 - 51.1 %) 11.7 L Monocytes % (1.7 - 9.3 %) 5.7 Eosinophils % (0 - 5 %) 0.5 Basophils % (0.0 - 2.0 %) 0.3 Absolute Granulocytes (1.4 - 6.5 /CUMM) 12.4 H Absolute Lymphocytes (1.2 - 3.4 /CUMM) 1.8 Absolute Monocytes (0.10 - 0.60 /CUMM) 0.9 H Absolute Eosinophils (0.0 - 0.7 /CUMM) 0.1 Absolute Basophils (0.0 - 0.2 /CUMM) 0 PUBS MCHC (33.0 - 37.0 G/DL) 33.7 Urines Urinalysis LIGHT H Urine Color (YEL,AMB,STR) YEL Urine Clarity (CLEAR) HAZY H Urine pH (5.0 - 8.0) 6.0 Ur Specific [place] (1.001 - 1.035) >= 1.030 Urine Protein (NEG,<30 MG/DL) 100 H Urine Ketones (NEG) NEG Urine Nitrite (NEG) NEG Urine Bilirubin (NEG) NEG Urine Urobilinogen (0.1 - 1.0 EU/dl) 0.2 Ur Leukocyte Esterase (NEG) NEG Ur Microscopic SEDIMENT EXAMINED Urine RBC (0 - 5 /HPF) 1-3 Urine WBC (0 - 2 /HPF) RARE Ur Epithelial Cells (NONE,FEW) FEW Urine Bacteria (NEG/NONE) RARE H Urine Mucus (FEW,NONE) FEW Urine Hemoglobin (NEG) MOD H Urine Glucose (N MG/DL) NEG Microbiology Date/Time Procedure - Status Source Growth 12/26 2244 Influenza Virus A & B Rapid Smear - COMP NASOPHARYN 12/26 224 Blood Culture - RECD BLOOD 12/26 2230 Blood Culture - RECD BLOOD 12/26 2205 Respiratory Culture - COLB LOWER RESP 12/26 2205 Gram Stain - COLB LOWER RESP 12/26 220 Urine Culture - RES URINE ROUT Assessment and plan * Pneumonia * Dementia * Constipation * fever * Mild hypokalemia * Hypoxia likely secondary to pneumonia Plan * Continue IV ceftriaxone and azithromycin * Continue bowel regimen; increase MiraLAX to twice a day * Replace potassium by mouth * Continue oxygen and taper as tolerated
[2016-12-27 16:00] VITALS: BP 122/58
--- NOTE | 2016-12-27 19:03 | NUR ---
PT ADMITTED TO ROOM # 234, ORAL REPORT VIDAL RIVERO RN ALL V.S.S. CLINICAL STATUS UNCHANGED. PT READY FOR TRANSFER.
--- NOTE | 2016-12-27 19:04 | NUR ---
pt has a bed [id number]
[2016-12-27 21:27] VITALS: BP 122/60
[2016-12-28 06:41] VITALS: BP 130/60
[2016-12-28 08:22] LABS: ABSOLUTE BASOPHIL COUNT 0 /CUMM (0.0-0.2); ABSOLUTE EOSINOPHIL COUNT 0.3 /CUMM (0.0-0.7); ABSOLUTE GRANULOCYTE CT 8.7 /CUMM (1.4-6.5); ABSOLUTE LYMPH COUNT 2.5 /CUMM (1.2-3.4); ABSOLUTE MONOCYTE COUNT 0.7 /CUMM (0.10-0.60); BASOPHIL % 0.3 % (0.0-2.0); EOSINOPHIL % 2.6 % (0-5); GRANULOCYTE % 70.8 % (42.2-75.2); HEMATOCRIT 27.8 % (37-47); MEAN CORPUSCULAR HGB 29.7 PG (27.0-31.0); MEAN CORPUSCULAR HGB CONC 33.5 G/DL (33.0-37.0); MEAN CORPUSCULAR VOLUME 88.5 FL (81.0-99.0); MEAN PLATELET VOLUME 9.4 FL (7.4-10.4); PLATELET COUNT 158 /CUMM (130-400); RBC DISTRIBUTION WIDTH 14.5 % (11.5-14.5); RED BLOOD CELL CT 3.14 /CUMM (4.20-5.40); WHITE BLOOD CELL COUNT 12.2 /CUMM (4.8-10.8)
--- NOTE | 2016-12-28 08:36 | PN- Housestaff ---
Subjective Follow-up For: Pneumonia Complaints: no complaints Subjective: Seen and examined at bedside, kazakh speaking female. No new complaints, continues to cough, denies abdominal pain. Eating well. Review of Systems Constitutional: Reports: see HPI. Objective Last 24 Hrs of Vital Signs/I&O Vital Signs Date Time Temp Pulse Resp B/P Pulse O2 O2 Flow FiO2 Ox Delivery Rate 12/28 0641 97.6 56 20 130/60 94 Nasal Cannula 12/27 2309 122/60 12/27 2127 98.5 65 20 122/60 90 Nasal Cannula 12/27 1600 99.8 62 16 122/58 95 Room Air 12/27 1010 98.7 73 20 126/58 96 Nasal 2.0L Cannula 12/27 0939 98.3 80 20 140/83 12/27 0939 98.3 80 20 140/83 12/27 0837 98.3 80 20 133/78 96 Nasal 2.0L Cannula 12/27 0827 98.3 80 133/78 Intake & Output 12/28 1600 12/28 0800 12/28 0000 Intake Total 0 Output Total Balance 0 Intake, Oral 0 Physical Exam General Appearance: Alert, Oriented X3, Cooperative Skin: No Rashes, No Breakdown HEENT: Atraumatic, PERRLA, EOMI, Mucous Membr. moist/pink Neck: Supple, No JVD Lymphatic: Axillary nl Cardiovascular: Regular Rate, Normal S1, Normal S2, No Murmurs Lungs: b/l rhonchi Abdomen: Normal Bowel Sounds, Soft, No Tenderness Neurological: Normal Speech, Strength at 5/5 X4 Ext Extremities: No Edema, Normal Pulses Vascular: Normal Pulses Assessment/Plan Assessment: 71-year-old Malay speaking female with a history of hypertension, hyperlipidemia, seasonal allergies, osteoporosis, dementia presents with a two- day history of vomiting, cough with sputum production, and vomiting. Due to a language barrier, permission was obtained from daughter at bedside. This morning reports feeling better, had breakfast without any issues, no longer nauseous, denies any further vomiting episodes this morning. Still coughing, with minimal sputum production. Requiring 2 L of oxygen, reports not using oxygen at home. Chest x-ray negative, however CT demonstrating pulmonary consolidation in the lingula, and left lower lobe with suspicion of pneumonia, with elevated white count, and febrile on admission. Pneumonia Were treating pneumonia with ceftriaxone and azithromycin. Continues to have cough with rhonchi. We will continue this. Keep oxygen saturations greater than 92%, titrate oxygen accordingly. Follow-up on cultures that were sent. Constipation She's been started on a bowel regimen. She had a bowel movement yesterday. continue bowel regimen Transaminitis AST and ALT mildly elevated, this could be secondary to infection or due to statin use. Labs pending Hypertension Continue home medications, blood pressure well-controlled 130/60 Right-sided weakness right sided weakness has resolved DVT prophylaxis Lovenox Problem List: 1. Hypertension 2. Temporary limb weakness 3. Pneumonia Pain Ratin Pain Location: no pain Pain Goal: Remain pain free Pain Plan: continue current regimen Tomorrow's Labs & Rationales: wbc
--- NOTE | 2016-12-28 10:30 | PN- Att Addend ---
Attending Addendum Attending Brief Note Patient seen and examined. Plan of care discussed with the medical team and the patient. Available lab work and radiology test reports were reviewed. Patient does not speak Urdu. She is currently awake and does not appear to be in distress. There were no family member present at the time. Vital Signs Date Time Temp Pulse Resp B/P Pulse O2 O2 Flow FiO2 Ox Delivery Rate 12/28 640 97.6 56 20 130/60 94 Nasal Cannula 12/27 2309 122/60 12/27 2127 98.5 65 20 122/60 90 Nasal Cannula 12/27 1600 99.8 62 16 122/58 95 Room Air Intake & Output 12/28 1600 12/28 0800 12/28 0000 Intake Total 200 0 Output Total Balance 200 0 Intake, Oral 200 0 Exam: General: Patient awake alert oriented without any distress CVS: S1 plus S2 without any murmur or gallops Chest: Few scattered crepitation without any wheeze. There is no respiratory distress. Abdomen: Soft nontender, bowel sound present, no guarding or rebound MACHINE STAPLER: Awake alert oriented without any focal neuro deficit and follows command appropriately Extremities: No edema; no clubbing or cyanosis noted Laboratory Tests 12/29 619 Chemistry Total Bilirubin (0.2 - 1.3 mg/dL) 0.5 Direct Bilirubin (< 0.4 mg/dL) 0.4 AST (14 - 36 U/L) 31 ALT (9 - 52 U/L) 51 Alkaline Phosphatase (<127 U/L) 46 Total Protein (6.3 - 8.2 g/dL) 6.3 Albumin (3.5 - 5.0 g/dL) 3.4 L Hematology CBC w Diff NO MAN DIFF REQ WBC (4.8 - 10.8 /CUMM) 12.2 H RBC (4.20 - 5.40 /CUMM) 3.14 L Hgb (12.0 - 16.0 G/DL) 9.3 L Hct (37 - 47 %) 27.8 L MCV (81.0 - 99.0 FL) 88.5 MCH (27.0 - 31.0 PG) 29.7 RDW (11.5 - 14.5 %) 14.5 Plt Count (130 - 400 /CUMM) 158 MPV (7.4 - 10.4 FL) 9.4 Gran % (42.2 - 75.2 %) 70.8 Lymphocytes % (20.5 - 51.1 %) 20.4 L Monocytes % (1.7 - 9.3 %) 5.9 Eosinophils % (0 - 5 %) 2.6 Basophils % (0.0 - 2.0 %) 0.3 Absolute Granulocytes (1.4 - 6.5 /CUMM) 8.7 H Absolute Lymphocytes (1.2 - 3.4 /CUMM) 2.5 Absolute Monocytes (0.10 - 0.60 /CUMM) 0.7 H Absolute Eosinophils (0.0 - 0.7 /CUMM) 0.3 Absolute Basophils (0.0 - 0.2 /CUMM) 0 PUBS MCHC (33.0 - 37.0 G/DL) 33.5 Assessment and plan * Pneumonia * Dementia * Constipation * fever * Mild hypokalemia * Hypoxia likely secondary to pneumonia Plan * Continue IV ceftriaxone and azithromycin * Continue bowel regimen; increase MiraLAX to twice a day * Replace potassium by mouth * Continue oxygen and taper as tolerated
[2016-12-28 14:10] VITALS: BP 120/60
[2016-12-28 22:33] VITALS: BP 102/70
[2016-12-29 07:39] VITALS: BP 104/70
--- NOTE | 2016-12-29 10:49 | PN- Housestaff ---
Subjective Follow-up For: Pneumonia Complaints: no complaints Subjective: Seen and examined at bedside, kiswahili speaking female. Daughter at bedside, c/o difficulty sleeping last night due to 2-3 bowel movements overnight. Reports continued coughing with minimal sputum production. Eating well with no abdominal pain. Review of Systems Constitutional: Reports: see HPI. Objective Last 24 Hrs of Vital Signs/I&O Vital Signs Date Time Temp Pulse Resp B/P Pulse O2 O2 Flow FiO2 Ox Delivery Rate 12/29 0910 73 132/72 12/29 0910 73 132/72 12/29 0800 96 Nasal 2.0L Cannula 12/29 0739 97.4 63 20 104/70 98 Nasal Cannula 12/29 0000 95 Nasal 2.0L Cannula 12/28 2233 98.2 63 20 102/70 99 12/28 2102 63 120/60 12/28 1410 98.7 63 20 120/60 95 Nasal 2.0L Cannula 12/28 1056 65 130/70 12/28 1056 65 130/70 Intake & Output 12/29 1600 12/29 0800 12/29 0000 Intake Total 960 960 Output Total Balance 960 960 Intake, IV 600 600 Intake, Oral 360 360 Number 3 1 Bowel Movements Physical Exam General Appearance: Alert, Oriented X3, Cooperative Skin: No Rashes, No Breakdown HEENT: Atraumatic, PERRLA, EOMI, Mucous Membr. moist/pink Neck: Supple, No JVD Lymphatic: Axillary nl Cardiovascular: Regular Rate, Normal S1, Normal S2, No Murmurs Lungs: b/l rhonchi Abdomen: Normal Bowel Sounds, Soft, No Tenderness Neurological: Normal Speech, Strength at 5/5 X4 Ext, Normal Tone Extremities: No Edema, Normal Pulses Current Medications: Current Medications Sig/[place] Start time Last Medication Dose Route Stop Time Status Admin Acetaminophen 650 MG Q6P PRN 12/270 AC PO Acetaminophen 1,000 MG Q6P PRN 12/27 0200 AC IV Amlodipine Besylate 2.5 MG QAM 12/27 1000 AC 12/29 PO 0910 Atorvastatin Calcium 20 MG 1700 12/27 1700 AC 12/28 PO 1802 Azithromycin 500 MG DAILY 12/27 1000 AC 12/29 Dextrose/Water 250 ML IV 0911 Ceftriaxone Sodium 1,000 MG DAILY 12/27 999 AC 12/29 IV 0911 Enoxaparin Sodium 40 MG DAILY 12/27 1000 AC 12/29 SC 0913 Guaifenesin 10 ML .STK-MED ONE 12/28 1756 DC PO 12/28 1757 Guaifenesin 10 ML .STK-MED ONE 12/28 1105 DC PO 12/28 1106 Guaifenesin 10 ML Q6P PRN 12/27 0245 AC 12/29 PO 0908 Ibuprofen 600 MG Q6P PRN 12/27 0200 AC PO Loratadine 10 MG DAILY 12/28 1145 AC 12/29 PO 0910 Magnesium Hydroxide 30 ML ONE PRN 12/27 0245 AC PO Metoprolol Tartrate 50 MG BID 12/27 1000 AC 12/29 PO 0910 Ondansetron HCl 4 MG Q8P PRN 12/27 0200 AC PO Polyethylene Glycol 17 GM BID 12/27 2200 AC 12/28 PO 2102 Senna/Docusate Sodium 2 TAB DAILY 12/27 1000 AC 12/28 PO 1054 Sertraline HCl 25 MG DAILY 12/27 1000 AC 12/29 PO 0909 Sodium Chloride 1,000 ML Q13H 12/27 0200 AC 12/29 IV 0130 Assessment/Plan Assessment: 71-year-old Bahraini speaking female with a history of hypertension, hyperlipidemia, seasonal allergies, osteoporosis, dementia presents with a two- day history of vomiting, cough with sputum production, and vomiting. Due to a language barrier, permission was obtained from daughter at bedside. This morning reports feeling better, had breakfast without any issues, no longer nauseous, denies any further vomiting episodes this morning. Still coughing, with minimal sputum production. Requiring 2 L of oxygen, reports not using oxygen at home. Chest x-ray negative, however CT demonstrating pulmonary consolidation in the lingula, and left lower lobe with suspicion of pneumonia, with elevated white count, and febrile on admission. Pneumonia Were treating community aquired pneumonia with ceftriaxone and azithromycin. Continues to have cough with rhonchi. We will continue this. Keep oxygen saturations greater than 92%, titrate oxygen accordingly. continues to have rhonchus breath sounds, remains afebrile. Will check sputum culture, get incentive spirometry. Constipation last night she had 3 bowel movements we can hold off on stool softners Transaminitis AST and ALT mildly elevated, this has normalized Hypertension Continue home medications, blood pressure well-controlled 132/72 Right-sided weakness right sided weakness has resolved DVT prophylaxis Lovenox Problem List: 1. Temporary limb weakness 2. Hypertension 3. Hyperlipidemia 4. Pneumonia Pain Ratin Pain Location: no pain Pain Goal: Remain pain free Pain Plan: continue current management Tomorrow's Labs & Rationales: cbc bep
--- NOTE | 2016-12-29 12:06 | PN- Att Addend ---
Attending Addendum Attending Brief Note Patient seen and examined. Plan of care discussed with the medical team and the patient. Available lab work and radiology test reports were reviewed. Patient does not speak Frisian. Her daughter is at the bedside. She is currently awake and does not appear to be in distress. As per daughter patient has been complaining of frequent coughing. No fever reported. Vital Signs Date Time Temp Pulse Resp B/P Pulse O2 O2 Flow FiO2 Ox Delivery Rate 12/29 1132 Nasal 2.0L Cannula 12/29 0910 73 132/72 12/29 0910 73 132/72 12/29 0800 96 Nasal 2.0L Cannula 12/29 0739 97.4 63 20 104/70 98 Nasal Cannula 12/29 0000 95 Nasal 2.0L Cannula 12/28 2233 98.2 63 20 102/70 99 12/28 2102 63 120/60 12/28 1410 98.7 63 20 120/60 95 Nasal 2.0L Cannula Intake & Output 12/29 1600 12/29 0800 12/29 0000 Intake Total 960 960 Output Total 250 Balance -250 960 960 Intake, IV 600 600 Intake, Oral 360 360 Number 3 1 Bowel Movements Output, Urine 250 Exam: General: Patient awake alert oriented without any distress CVS: S1 plus S2 without any murmur or gallops Chest: Few scattered crepitation without any wheeze. There is no respiratory distress. Abdomen: Soft nontender, bowel sound present, no guarding or rebound INTERNAL CONTROLS CONSULTANT: Awake alert oriented without any focal neuro deficit and follows command appropriately Extremities: No edema; no clubbing or cyanosis noted Microbiology Date/Time Procedure - Status Source Growth 12/29 1100 Respiratory Culture - COLB LOWER RESP 12/29 1100 Gram Stain - COLB LOWER RESP Assessment and plan * Pneumonia * Dementia * Constipation * fever * Mild hypokalemia * Hypoxia likely secondary to pneumonia Plan * Continue IV ceftriaxone and azithromycin today with plan to switch to oral 20 per X tomorrow * Continue bowel regimen; * Continue oxygen and taper as tolerated * Out of bed and ambulate
--- NOTE | 2016-12-29 14:02 | Discharge Summary ---
Visit Information Visit Dates Admission Date: 12/27/16 Discharge Date: 12/31/16 Hospital Course Course Attending Physician: SILAS LUO,BABS Primary Care Physician: LUDMILA SINGH MARY [facility] Course: 71- YO Citizen Of [place] speaking lady with past medical history of early stage dementia, hypertension, hyperlipidemia presented to [facility] by her daughter for evaluation of cough, malaise, and confusion. She only speaks [place], daughter provided much of the history and remained at bedside for the hosptial stay. Daughter reports that for the past 1-2 days prior to arrival she developed a cough which has progressively worsened. There was minimal sputum production. Associated symptoms included fever, nausea and vomiting, and what appeared to be a very transient episode of right-sided weakness including left-sided extremity and some mouth droop. She was admitted to the General Medicine floor for community aquired pneumonia. She was treated with IV ceftriaxone and azithromycin for 4 days. This was switched to augmentin to be continued for an additional two days. Oxygen satuations were monitored and she was titrated off oxygen while keeping her O2 levels >92% Right sided weakness While hospitalized she she was closely monitored for neurological symptoms. She did not display facial droop or right sided weakness during her hospital stay. Blood pressure was well controlled on current home medications Her constipaton resolved. Her transaminitis resolved Allergies: Coded Allergies: No Known Drug Allergies (12/26/16) Pertinent Lab Results: Vital Signs Result Date Time Pulse Ox 95 12/31 1042 O2 Delivery Room Air 12/31 1042 O2 Flow Rate Room Air 12/31 1042 B/P 136/64 12/31 0700 Temp 98.1 12/31 0700 Pulse 68 12/31 0700 Resp 20 12/31 0700 Disposition Summary Disposition Principal Diagnosis: Pneumonia Additional Diagnosis: Hypertension Discharge Disposition: home or self care Discharge Instructions General Discharge Information Code Status: Full Code Patient's Diet: Regular diet Patient's Activity: Independent Follow-Up Instructions/Appts: Please f/u with PCP in one week of discharge. Medications at Discharge Discharge Medications: Continue taking these medications: Amlodipine Besylate (Amlodipine Besylate) 2.5 MG TABLET 1 Tablet ORAL Every Morning Qty = 30 Comments: TAKEN 12/31 AT 10AM Metoprolol Tartrate (Metoprolol Tartrate) 50 MG TABLET 1 Tablet ORAL TWICE DAILY Qty = 180 Comments: TAKEN 12/31 AT 10AM Sertraline HCl (Sertraline HCl) 25 MG TABLET 1 Tablet ORAL DAILY Qty = 30 Comments: TAKEN 3 AT 10AM Atorvastatin Calcium (Atorvastatin Calcium) 20 MG TABLET 1 Tablet ORAL TAKE AT BEDTIME Qty = 30 Comments: TAKEN 12/30 AT 5PM Alendronate Sodium (Alendronate Sodium) 70 MG TABLET 1 Tablet ORAL DAILY Qty = 4 Cholecalciferol (Vitamin D3) (Vitamin D) 2,000 UNIT CAPSULE 1 Tablet ORAL DAILY Amoxicillin/Clavulanate Potass (Amox-Clav 875-125 MG Tablet) 875 MG-125 MG TABLET 875 Milligram ORAL EVERY 12 HOURS Qty = 4 Instructions: take as directed This prescription has been renewed Start taking the following new medications: Loratadine (Loratadine) 10 MG TABLET 10 Milligram ORAL DAILY Qty = 30 No Refills Instructions: take as directed Comments: TAKEN 12/31 AT 10AM Guaifenesin (Guaifenesin) 100 MG/5 ML LIQUID 10 Milliliters ORAL EVERY SIX HOURS NEEDED as needed for COUGH Qty = 1 No Refills Instructions: take as directed. Polyethylene Glycol 3350 (Miralax) 17 GRAM POWD.PACK 1 Packet ORAL DAILY Qty = 30 No Refills Instructions: dissolve in water Comments: hold for diarrhea Acetaminophen (Tylenol) 325 MG TABLET 650 Milligram ORAL EVERY SIX HOURS NEEDED as needed for PAIN SCALE 1-3 ( MILD) Qty = 20 No Refills Instructions: take as directed Amoxicillin/Clavulanate Potass (Amox-Clav 875-125 MG Tablet) 875 MG-125 MG TABLET 875 Milligram ORAL EVERY 12 HOURS Qty = 4 No Refills Copies To: SILAS LUO,BABS
[2016-12-29 14:28] VITALS: BP 125/63
[2016-12-29 23:45] VITALS: BP 144/70
[2016-12-30 06:47] VITALS: BP 150/76
--- NOTE | 2016-12-30 08:18 | PN- Housestaff ---
Subjective Follow-up For: Pneumonia Subjective: Patient was seen and examined, vitals are stable, no overnight events. Patient offered no new complaints. Review of Systems Constitutional: Reports: see HPI. Objective Last 24 Hrs of Vital Signs/I&O Vital Signs Date Time Temp Pulse Resp B/P Pulse O2 O2 Flow FiO2 Ox Delivery Rate 12/30 0958 62 150/76 12/30 0958 62 150/76 12/30 0647 98.4 62 18 150/76 94 Nasal 2.0L Cannula 12/30 0000 Nasal 2.0L Cannula 12/29 2345 98.5 63 18 144/70 95 Nasal 2.0L Cannula 12/29 2229 98.3 63 18 144/70 12/29 1428 97.4 61 20 125/63 96 12/29 1132 Nasal 2.0L Cannula Intake & Output 12/30 1600 12/30 0800 12/30 0000 Intake Total 840 Output Total 650 1002 Balance 190 -1002 Intake, IV 600 Intake, Oral 240 Output, Stool 2 Output, Urine 650 1000 Physical Exam General Appearance: Alert, Oriented X3, Cooperative, No Acute Distress Skin: No Rashes, No Breakdown, No Significant Lesion HEENT: Atraumatic, PERRLA, EOMI, Mucous Membr. moist/pink Cardiovascular: Regular Rate, Normal S1, Normal S2, No Murmurs Lungs: Clear to Auscultation, Normal Air Movement Abdomen: Normal Bowel Sounds, Soft, No Tenderness Neurological: Normal Gait, Normal Speech, Strength at 5/5 X4 Ext, Normal Tone, Sensation Intact, Cranial Nerves 3-12 NL, Reflexes 2+ Extremities: No Clubbing, No Cyanosis, No Edema, Normal Pulses Assessment/Plan Assessment: 71-year-old Frisian speaking female with a history of hypertension, hyperlipidemia, seasonal allergies, osteoporosis, dementia presents with a two- day history of vomiting, cough with sputum production, and vomiting. Due to a language barrier, permission was obtained from daughter at bedside. This morning reports feeling better, had breakfast without any issues, no longer nauseous, denies any further vomiting episodes this morning. Still coughing, with minimal sputum production. Requiring 2 L of oxygen, reports not using oxygen at home. Chest x-ray negative, however CT demonstrating pulmonary consolidation in the lingula, and left lower lobe with suspicion of pneumonia, with elevated white count, and febrile on admission. Community-acquired pneumonia -Continue IV ceftriaxone and azithromycin, plan to switch to Augmentin 875 mg twice a day tomorrow Sunday12/31/16 -Continue oxygen and taper as tolerated -Ambulate the patient as tolerated -Incentive spirometry Constipation -Bowel Regimen as needed Transaminitis -AST and ALT mildly elevated, this has normalized Hypertension -Continue home medications, blood pressure well-controlled Right-sided weakness -right sided weakness has resolved DVT prophylaxis Lovenox For possible discharge tomorrow morning Problem List: 1. Pneumonia Pain Ratin Pain Location: Low back pain Pain Goal: Pain 4 or less Pain Plan: Mild pain pathway Tomorrow's Labs & Rationales: None
--- NOTE | 2016-12-30 10:45 | PN- Att Addend ---
Attending Addendum Attending Brief Note Patient seen and examined. Plan of care discussed with the medical team and the patient. Available lab work and radiology test reports were reviewed. Patient does not speak Luxembourgish. Her daughter is at the bedside. She is currently awake and does not appear to be in distress. As per daughter patient has been complaining of frequent coughing however patient was not noted to be coughing during the examination. No fever reported. As per daughter patient to try to walk yesterday but was unable to. Vital Signs Date Time Temp Pulse Resp B/P Pulse O2 O2 Flow FiO2 Ox Delivery Rate 12/30 0958 62 150/76 12/30 0958 62 150/76 12/30 0647 98.4 62 18 150/76 94 Nasal 2.0L Cannula 12/30 0000 Nasal 2.0L Cannula 12/29 2345 98.5 63 18 144/70 95 Nasal 2.0L Cannula 12/29 2229 98.3 63 18 144/70 12/29 1428 97.4 61 20 125/63 96 12/29 1132 Nasal 2.0L Cannula Intake & Output 12/30 1600 12/30 0800 12/30 0000 Intake Total 840 Output Total 650 1002 Balance 190 -1002 Intake, IV 600 Intake, Oral 240 Output, Stool 2 Output, Urine 650 1000 Exam: General: Patient awake alert oriented without any distress CVS: S1 plus S2 without any murmur or gallops Chest: Few scattered crepitation without any wheeze. There is no respiratory distress. 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: Awake alert oriented without any focal neuro deficit and follows command appropriately Extremities: No edema; no clubbing or cyanosis noted Microbiology Date/Time Procedure - Status Source Growth 12/29 1100 Respiratory Culture - COLB LOWER RESP 12/29 1100 Gram Stain - COLB LOWER RESP Assessment and plan * Pneumonia * Dementia * Constipation * fever * Mild hypokalemia * Hypoxia likely secondary to pneumonia Plan * Continue IV ceftriaxone and azithromycin today with plan to switch to oral antibiotic Augmentin 875 mg twice a day tomorrow * Continue bowel regimen; * Continue oxygen and taper as tolerated * Out of bed and ambulate * Possible discharge tomorrow
[2016-12-30 15:05] VITALS: BP 142/78
[2016-12-30 22:26] VITALS: BP 152/82
[2016-12-31 07:00] VITALS: BP 136/64
--- NOTE | 2016-12-31 09:11 | PN- Housestaff ---
Subjective Follow-up For: Pneumonia Complaints: no complaints Subjective: Patient was seen and examined, vitals are stable, no overnight events. Patient offered no new complaints. Review of Systems Constitutional: Reports: no symptoms. Respiratory: Reports: cough. Objective Last 24 Hrs of Vital Signs/I&O Vital Signs Date Time Temp Pulse Resp B/P Pulse O2 O2 Flow FiO2 Ox Delivery Rate 12/31 1042 95 Room Air Room Air 12/31 0700 98.1 68 20 136/64 92 Nasal 2.0L Cannula 12/31 0000 Nasal 2.0L Cannula 12/30 2226 97.4 64 20 152/82 94 Nasal 2.0L Cannula 12/30 2142 64 138/60 12/30 1600 Nasal 2.0L Cannula 12/30 1505 97.6 64 20 142/78 93 Intake & Output 12/31 1600 12/31 0800 12/31 0000 Intake Total 100 100 Output Total Balance 100 100 Intake, Oral 100 100 Physical Exam General Appearance: Alert, Cooperative, No Acute Distress HEENT: PERRLA, Mucous Membr. moist/pink Cardiovascular: Regular Rate, Normal S1, Normal S2 Lungs: rhoncii and wheezing Abdomen: Normal Bowel Sounds, Soft, No Tenderness Extremities: No Edema, Normal Pulses Current Medications: Current Medications Sig/[place] Start time Last Medication Dose Route Stop Time Status Admin Acetaminophen 650 MG Q6P PRN 12/27 0200 AC PO Acetaminophen 1,000 MG Q6P PRN 12/27 0200 AC IV Albuterol Sulfate 3 ML ONCE ONE 12/31 1045 DC 12/31 INH 12/31 1046 1039 Amlodipine Besylate 2.5 MG QAM 12/27 1000 AC 12/31 PO 1216 Amoxicillin/ 875 MG Q12 12/31 1000 AC 12/31 Clavulanate Potassium PO 1216 Atorvastatin Calcium 20 MG 1700 12/27 1700 AC 12/30 PO 1702 Azithromycin 500 MG DAILY 12/27 1000 DC 12/30 Dextrose/Water 250 ML IV 0959 Ceftriaxone Sodium 1,000 MG DAILY 12/27 1000 DC 12/30 IV 0958 Enoxaparin Sodium 40 MG DAILY 12/27 1000 AC 12/31 SC 1217 Guaifenesin 10 ML Q6P PRN 12/27 0245 AC 12/30 PO 1008 Ibuprofen 600 MG Q6P PRN 12/27 0200 AC PO Loratadine 10 MG DAILY 12/28 1145 AC 12/31 PO 1216 Magnesium Hydroxide 30 ML ONE PRN 12/27 0245 AC PO Metoprolol Tartrate 50 MG BID 12/27 1000 AC 12/31 PO 1216 Ondansetron HCl 4 MG Q8P PRN 12/27 0200 AC PO Sertraline HCl 25 MG DAILY 12/27 1000 AC 12/31 PO 1216 Sodium Chloride 1,000 ML Q13H 12/27 0200 DC 12/30 IV 1441 Lines/Diet/Fluids Lines: peripheral lines Assessment/Plan Assessment: 71-year-old Turkmen speaking female with a history of hypertension, hyperlipidemia, seasonal allergies, osteoporosis, dementia presents with a two- day history of vomiting, cough with sputum production, and vomiting. Due to a language barrier, permission was obtained from daughter at bedside. This morning reports feeling better, had breakfast without any issues, no longer nauseous, denies any further vomiting episodes this morning. Still coughing, with minimal sputum production. Chest x-ray negative, however CT demonstrating pulmonary consolidation in the lingula, and left lower lobe with suspicion of pneumonia, with elevated white count, and febrile on admission. Community-acquired pneumonia -Saturating well on RA; Ambulatory saturation 98% -Switched to Augmentin 875 mg twice a day today; discharge home on Augmenting for 2 more days -Ambulate the patient as tolerated -Continue Incentive spirometry -Continue breathing treatments as needed Constipation -Miralax at bedtimme PRN; hold for diarrhea Transaminitis -AST and ALT mildly elevated, this has normalized Hypertension -Continue home medications, blood pressure well-controlled Right-sided weakness -right sided weakness has resolved DVT prophylaxis Lovenox Discharge today with home services. Problem List: 1. Pneumonia Pain Ratin Pain Location: n/a Pain Goal: n/a Pain Plan: n/a Tomorrow's Labs & Rationales: none
--- NOTE | 2016-12-31 10:51 | PN- Att Addend ---
Attending Addendum Attending Brief Note Patient seen and examined. Plan of care discussed with the medical team and the patient. Available lab work and radiology test reports were reviewed. Patient does not speak Syriac. Her daughter is at the bedside. She is currently awake and does not appear to be in distress. As per daughter patient has been coughing and this is her major complaint otherwise no difficulty breathing fever chills. Patient was able to walk yesterday. Vital Signs Date Time Temp Pulse Resp B/P Pulse O2 O2 Flow FiO2 Ox Delivery Rate 12/31 1042 95 Room Air Room Air 12/31 0700 98.1 68 20 136/64 92 Nasal 2.0L Cannula 12/31 0000 Nasal 2.0L Cannula 12/30 2226 97.4 64 20 152/82 94 Nasal 2.0L Cannula 12/30 2142 64 138/60 12/30 1600 Nasal 2.0L Cannula 12/30 1505 97.6 64 20 142/78 93 Intake & Output 12/31 1600 12/31 0800 12/31 0000 Intake Total 100 100 Output Total Balance 100 100 Intake, Oral 100 100 Exam: General: Patient awake alert oriented without any distress CVS: S1 plus S2 without any murmur or gallops Chest: Few scattered crepitation without any wheeze. There is no respiratory distress. 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 Assessment and plan * Pneumonia * Hypoxia * Dementia * Constipation * fever * Mild hypokalemia * Hypoxia likely secondary to pneumonia Plan * Continue Augmentin 875 mg twice a day for 2 more days * Continue bowel regimen; discharge patient home on bowel regimen * Continue oxygen and taper as tolerated * Discharge home today; patient was ablated her sats were above 90% on room air. Plan was discussed with the daughter.
[2016-12-31] MEDS ORDERED: AMOX-CLAV 875-1 EACH PO ×2 (11:56→14:07)
[2016-12-31] MEDS ORDERED: LORATADINE10 M1 PO ×2 (12:01→14:07)
[2016-12-31] MEDS ORDERED: GUAIFENESI100 MG/5 M PO ×2 (12:01→14:07)
[2016-12-31] MEDS ORDERED: TYLENOL325 M1 PO ×2 (12:01→14:07)
--- NOTE | 2016-12-31 12:11 | Patient Discharge Instructions ---
Discharge Instructions General Discharge Information You were seen/treated for: PNEUMONIA Special Instructions: Please follow up with your PCP in 1 week after discharge Diet Continue normal diet: Yes Activity Full Activity/No Limits: Yes Acute Coronary Syndrome Inclusion Criteria At DC or during hospital stay patient has or had the following: ACS DIAGNOSIS No Discharge Core Measures Meds if any: Prescribed or Continued at Discharge Meds if any: NOT Prescribed or Continued at Discharge Congestive Heart Failure Inclusion Criteria At DC or during hospital stay patient has or had the following: CHF DIAGNOSIS No Discharge Core Measures Meds if any: Prescribed or Continued at Discharge Meds if any: NOT Prescribed or Continued at Discharge Cerebrovascular accident Inclusion Criteria At DC or during hospital stay patient has or had the following: CVA/TIA Diagnosis No Discharge Core Measures Meds if any: Prescribed or Continued at Discharge Meds if any: NOT Prescribed or Continued at Discharge Venous thromboembolism Inclusion Criteria VTE Diagnosis No VTE Type NONE VTE Confirmed by (Test) NONE Discharge Core Measures - Per Current guidelines, there needs to be overlap - treatment for the first 5 days of Warfarin therapy. - If discharged on Warfarin prior to 5 days of - overlap therapy, the patient will need to be - assessed for post discharge needs including - *Post discharge parental anticoagulation - *Warfarin and/or parental anticoagulation education - *Follow up date to check INR post discharge At least 5 days overlap therapy as Inpatient No Meds if any: Prescribed or Continued at Discharge Note: Overlap Therapy is Warfarin and Anticoagulant Meds if any: NOT Prescribed or Continued at Discharge
[2016-12-31] MEDS ORDERED: MIRALAX17 G1 PO ×2 (12:24→14:07)
== END 2016-12-31 14:14 | disposition home health service (06) | DRG 139 ==
LOC: ENRESERVDT → ENRESERVTM → ERH 21:30 → ENPENDDIS 12-27 00:31 → 2NA 12-27 00:31 → ERHI 12-27 00:31 → 2NA 12-27 19:49
PROVIDERS: Physician Assistant; Student in an Organized Health Care Education/Training Program; ADMIT Student in an Organized Health Care Education/Training Program
DX: J18.9 Pneumonia, unspecified organism (principal); F03.90 Unspecified dementia, unspecified severity, without behavioral disturbance, psychotic disturbance, mood disturbance, and anxiety; I10 Essential (primary) hypertension; E78.5 Hyperlipidemia, unspecified; R09.02 Hypoxemia; K59.09 Other constipation; F41.9 Anxiety disorder, unspecified; E87.6 Hypokalemia
CPT/HCPCS: 2NAP; 74177; 81001; 82436; 87040; 87070; 87086; 87804; 87804-59; 93005; 93010; 96361; 96374; 96375; J0131; J0456; J0696; J1650; J2405; J3101; J7060

== ENCOUNTER 2017-01-30 18:04 | Inpatient (IN) | payer OTHER ==
[~2017-01-30] VITALS: Ht 152.4 cm; Wt 66.7 kg
[~2017-01-30 18:04] MED LIST: ALENDRONATE SOD70 M2 PO; AMLODIPINE BES2.5 M1 PO; AMOX-CLAV 875-1 EACH PO; ATORVASTATIN CA20 M1 PO; GUAIFENESI100 MG/5 M PO; LORATADINE10 M1 PO; METOPROLOL TART50 M1 PO; MIRALAX17 G1 PO; SERTRALINE HCL25 MG PO; TYLENOL325 M1 PO; VITAMIN D2000 UNIT PO
[2017-01-30] MEDS ORDERED: CLARINEX5 M1 PO (18:36)
[2017-01-30] MEDS ORDERED: OLANZAPINE5 M2 (18:38)
--- NOTE | 2017-01-30 19:20 | ED GENERAL ADULT ---
History of Present Illness General Chief Complaint: General Adult Stated Complaint: PT WAS SIB DR FOR RECTAL BLEEDING Source: patient, family, old records Exam Limitations: no limitations Vital Signs & Intake/Output Vital Signs & Intake/Output Vital Signs Date Time Temp Pulse Resp B/P Pulse O2 O2 Flow FiO2 Ox Delivery Rate 01/30 2113 97.3 64 20 163/73 98 Room Air 01/30 1920 72 159/73 01/31 1808 98.6 76 20 156/87 97 Room Air Allergies Coded Allergies: No Known Allergies (01/30/17) Reconcile Medications Amlodipine Besylate 2.5 MG TABLET 1 TAB PO QAM HTN (Reported) Atorvastatin Calcium 20 MG TABLET 1 TAB PO QHS CHOLESTEROL (Reported) Cholecalciferol (Vitamin D3) (Vitamin D) 2,000 UNIT CAPSULE 1 TAB PO DAILY SUPP (Reported) Metoprolol Tartrate 50 MG TABLET 1 TAB PO BID HTN (Reported) Sertraline HCl 25 MG TABLET 1 TAB PO DAILY DEPRESSION (Reported) Triage Note: TRIAGE: PT TO ER WITH DAUGHTER C/C RECTAL BLEEDING, ONSET YESTERDAY. BLOOD IS BRIGHT RED IN COLOR, DENIES CLOTS. CALLED PMD WHO ADVISED COMING TO ER. DENIES ANY PAIN. HX OF HEMMORHOIDS. DAUGHTER REPORTS THAT SHE HAS BEEN FEELING NAUSEAS A LOT WITH VOMITING AT TIMES, LAST VOMITED A MONTH AGO. PT BENGALI SPEAKING, DAUGHTER ASSISTS WITH TRANSLATIONS. Triage Nurses Notes Reviewed? yes HPI: Patient presents with blood per rectum since yesterday. Patient denies any abdominal pain. There are no fevers or chills. Patient states that she had 2 episodes of bright red blood per rectum yesterday and then 4 episodes today. There is no stool in with the blood. There were no clots. Patient does not feel dizzy or lightheaded. Patient does not feel nauseous and there has been no vomiting. There is no dysuria. Patient called her primary care physician who instructed her to come into the emergency room for evaluation. Past History Travel History Traveled to [place] past 21 day No Medical History Any Pertinent Medical History? see below for history Neurological: dementia EENT: NONE Cardiovascular: hypertension, hyperlipidemia Respiratory: NONE Gastrointestinal: NONE Hepatic: NONE Renal: NONE Musculoskeletal: NONE Psychiatric: NONE Endocrine: NONE Blood Disorders: NONE Cancer(s): NONE CITY SANITARIAN/Reproductive: NONE Other Medical Hx: DEMENTIA History of MRSA: No History of VRE: No History of CDIFF: No Influenza Vaccine: 08/22/16 Surgical History Surgical History: non-contributory Psychosocial History Who do you live with Daughter Services at Home None What is your primary language Guyanese Tobacco Use: Never used ETOH Use: denies use Illicit Drug Use: denies illicit drug use Family History Hx Contributory? No Review of Systems Review of Systems Constitutional: Reports: no symptoms. EENTM: Reports: no symptoms. Respiratory: Reports: no symptoms. Cardiovascular: Reports: no symptoms. GI: Reports: see HPI. Genitourinary: Reports: no symptoms. Musculoskeletal: Reports: no symptoms. Skin: Reports: no symptoms. Neurological/Psychological: Reports: no symptoms. Hematologic/Endocrine: Reports: no symptoms. Immunologic/Allergic: Reports: no symptoms. All Other Systems: Reviewed and Negative Physical Exam Physical Exam General Appearance: well developed/nourished, alert, awake, mild distress Head: atraumatic Eyes: Bilateral: PERRL, EOMI. Ears, Nose, Throat: normal pharynx, normal ENT inspection, hearing grossly normal Neck: normal inspection, supple, full range of motion Respiratory: normal breath sounds, chest non-tender, no respiratory distress, lungs clear Cardiovascular: regular rate/rhythm, normal peripheral pulses Gastrointestinal: normal bowel sounds, soft, non-tender, no organomegaly Rectal: NO STOOL IN VAULT, HEME POSITIVE, SMALL POINT OF BLOOD ON TIP OF GLOVE Back: normal inspection Extremities: normal inspection, normal capillary refill, normal range of motion, no edema Neurologic/Psych: no motor/sensory deficits, awake, alert, oriented x 3, normal mood/affect Skin: intact, normal color, warm/dry Lymphatic: no anterior cervical jose manuel Core Measures ACS in differential dx? No CVA/TIA Diagnosis: No Severe Sepsis Present: No Septic Shock Present: No Progress Differential Diagnoses I considered the following diagnoses in my evaluation of the patient: [Colon cancer, diverticulosis, AVMs, hemorrhoidal bleed, ischemic colitis] Plan of Care: Orders Procedure Date/time Status TRC EVALUATION (GEN) 01/30 2119 Active OXYGEN SETUP (GEN) 01/30 2119 Active Pathway - chart 01/30 2119 Active House Staff 01/30 2119 Active Patient Data 01/30 2119 Active Patient Data 01/30 2113 Active Admit to inpatient 01/31 2112 Active MISTAKE 01/30 1903 Active URINALYSIS 01/30 1903 Complete TROPONIN LEVEL 01/30 1903 Complete PARTIAL THROMBOPLASTIN TIME 01/30 1903 Complete PROTHROMBIN TIME 01/30 1903 Complete COMPREHENSIVE METABOLIC PANEL 01/30 1903 Complete CBC WITHOUT DIFFERENTIAL 01/30 1903 Complete EKG 01/30 1903 Active TYPE & SCREEN (NOT X-MATCH) 01/30 1903 Complete VTE Mechanical Prophylaxis 01/30 UNK Active MISTAKE 01/30 UNK Active Intake & Output 01/30 UNK Active Hemoccult 01/30 UNK Active Laboratory Tests 01/30/17 1930: Anion Gap 13, Estimated GFR > 60, BUN/Creatinine Ratio 16.7, Glucose 118 H, Calcium 9.5, Total Bilirubin 0.3, AST 37 H, ALT 43, Alkaline Phosphatase 63, Troponin I < 0.01, Total Protein 8.2, Albumin 4.5, Globulin 3.7, Albumin/ Globulin Ratio 1.2, PT 10.2, INR 0.97, APTT 30, CBC w Diff NO MAN DIFF REQ, RBC 3.72 L, MCV 88.7, MCH 29.2, RDW 15.7 H, MPV 8.1, Gran % 56.0, Lymphocytes % 32.7, Monocytes % 7.8, Eosinophils % 3.2, Basophils % 0.3, Absolute Granulocytes 6.3, Absolute Lymphocytes 3.7 H, Absolute Monocytes 0.9 H, Absolute Eosinophils 0.4, Absolute Basophils 0, PUBS MCHC 32.9 L, Urine Color YEL, Urine Clarity CLEAR, Urine pH 6.0, Ur Specific Fisher 1.010, Urine Protein NEG, Urine Ketones NEG, Urine Nitrite NEG, Urine Bilirubin NEG, Urine Urobilinogen 0.2, Ur Leukocyte Esterase NEG, Ur Microscopic SEDIMENT EXAMINED, Urine RBC RARE, Urine WBC RARE, Urine Hemoglobin SMALL H, Urine Glucose NEG Initial ED EKG: NSR, nonspecific ST T wave chg Prior EKG: unchanged Comments: Discussed with GI. They will see her in consultation the morning. Departure Departure Disposition: STILL A PATIENT Condition: Stable Clinical Impression Primary Impression: Lower GI bleed Referrals: LUDMILA SINGH (PCP/Family) Departure Forms: Customer Survey General Discharge Information Admission Note Spoke With: NORMAN MORATAYA MD Documentation of Exam: Documentation of any treatments & extenuating circumstances including Concerns Regarding Discharge (functional status, medication knowledge or non-compliance, living conditions, etc.) that warrant an admission rather than observation: [GI CONSULT, IF MORE BLEEDING MAY NEED TAGGED RED BLOOD CELL SCAN, WILL NEED COLONOSCOPY] Critical Care Note Critical Care Note Critical Care Time: non-applicable
[2017-01-30 19:40] LABS: ABSOLUTE BASOPHIL COUNT 0 /CUMM (0.0-0.2); ABSOLUTE EOSINOPHIL COUNT 0.4 /CUMM (0.0-0.7); ABSOLUTE GRANULOCYTE CT 6.3 /CUMM (1.4-6.5); ABSOLUTE LYMPH COUNT 3.7 /CUMM (1.2-3.4); ABSOLUTE MONOCYTE COUNT 0.9 /CUMM (0.10-0.60); BASOPHIL % 0.3 % (0.0-2.0); EOSINOPHIL % 3.2 % (0-5); MEAN CORPUSCULAR HGB 29.2 PG (27.0-31.0); MEAN CORPUSCULAR HGB CONC 32.9 G/DL (33.0-37.0); MEAN CORPUSCULAR VOLUME 88.7 FL (81.0-99.0); MEAN PLATELET VOLUME 8.1 FL (7.4-10.4); PLATELET COUNT 259 /CUMM (130-400); RBC DISTRIBUTION WIDTH 15.7 % (11.5-14.5); RED BLOOD CELL CT 3.72 /CUMM (4.20-5.40); WHITE BLOOD CELL COUNT 11.2 /CUMM (4.8-10.8)
[2017-01-30 19:56] LABS: PT 10.2 SEC (9.4-12.5); PTT 30 SEC (25-37)
--- NOTE | 2017-01-30 21:15 | History & Physical ---
LIBRADO LUO,CHAPITO 01/30/174: General Information and HPI Source of Information: family Exam Limitations: language barrier History of Present Illness: Ms. Britton is a 71 year-old Bangladeshi speaking lady with a PMH significant for early stage dementia, HTN, and HLD, recently admitted to [facility] for pneumonia, who presents after 3 episodes of hematochezia since yesterday. Per the patient's daughter at bedside, patient had a large amount of bright red blood on top of the stools yesterday followed by 2 additional episodes of hematochezia this morning, prompting them to come into ER. Associated with some nausea and dizziness which have resolved by the time of the interview. Denies any abdominal pain, diarrhea, constipation or any other GI sxs. No f/c, chest discomfort, palpitations, dyspnea, urinary sxs. Patient has a remote history of hemorrhoids (decades ago) which apparently have resolved according to the patient/daughter. Never had colonoscopy and denies any h/o rectal bleed previously. On patient lives at home with her daugther and son. Denies any h/o tobacco/ EtOH/illicit drug use. Patient has early dementia and is depedent on children for grocery shopping and transportation. PCP - TAMARA Chan Benefits Consultant - Dr. Yuliya Prasad Full code. 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 Home Who Do You Live With? child Services at Home: None Primary Language: Bangladeshi Smoking Status: Never Smoked ETOH Use: denies use Illicit Drug Use: denies illicit drug use Review of Systems Review of Systems Constitutional: Reports: see HPI. Exam & Diagnostic Data Last 24 Hrs of Vital Signs/I&O Vital Signs Date Time Temp Pulse Resp B/P Pulse O2 O2 Flow FiO2 Ox Delivery Rate 01/30 2113 97.3 64 20 163/73 98 Room Air 01/30 1920 72 159/73 01/30 1808 98.6 76 20 156/87 97 Room Air Physical Exam General Appearance Alert, Oriented X3, Cooperative, No Acute Distress Skin No Rashes, No Breakdown, No Significant Lesion HEENT Atraumatic, PERRLA, EOMI, Dry mucous memb Neck Supple, No JVD, No LAD Cardiovascular Regular Rate, Normal S1, Normal S2, No Murmurs, Gallops, Rubs Lungs Clear to Auscultation, Normal Air Movement Abdomen Normal Bowel Sounds, Soft, No Tenderness Extremities No Clubbing, No Cyanosis, No Edema, Normal Pulses, No Tenderness/ Swelling Last 24 Hrs of Labs/Evangelist: Laboratory Tests 01/30/171929: Anion Gap 13, Estimated GFR > 60, BUN/Creatinine Ratio 16.7, Glucose 118 H, Calcium 9.5, Total Bilirubin 0.3, AST 37 H, ALT 43, Alkaline Phosphatase 63, Troponin I < 0.01, Total Protein 8.2, Albumin 4.5, Globulin 3.7, Albumin/ Globulin Ratio 1.2, PT 10.2, INR 0.97, APTT 30, CBC w Diff NO MAN DIFF REQ, RBC 3.72 L, MCV 88.7, MCH 29.2, RDW 15.7 H, MPV 8.1, Gran % 56.0, Lymphocytes % 32.7, Monocytes % 7.8, Eosinophils % 3.2, Basophils % 0.3, Absolute Granulocytes 6.3, Absolute Lymphocytes 3.7 H, Absolute Monocytes 0.9 H, Absolute Eosinophils 0.4, Absolute Basophils 0, PUBS MCHC 32.9 L, Urine Color YEL, Urine Clarity CLEAR, Urine pH 6.0, Ur Specific [place] 1.010, Urine Protein NEG, Urine Ketones NEG, Urine Nitrite NEG, Urine Bilirubin NEG, Urine Urobilinogen 0.2, Ur Leukocyte Esterase NEG, Ur Microscopic SEDIMENT EXAMINED, Urine RBC RARE, Urine WBC RARE, Urine Hemoglobin SMALL H, Urine Glucose NEG Assessment/Plan Assessment: Ms. Britton is a 71 year-old Bangladeshi speaking lady with a PMH significant for early stage dementia, HTN, and HLD, recently admitted to [facility] for pneumonia, who presents after 3 episodes of hematochezia since yesterday, most likely 2/2 a diverticular source. # Hematochezia - CT abd/pelvis (01/30): Moderate to large amount of stool in the rectum, which could reflect fecal impaction. No evidence of bowel obstruction or inflammation. * Admit to GM * Vitals every shift * Check CBC q6H * Appreciate GI recs regarding colonoscopy * Check orthostats - positive in ER * Full liquid diet for now * Type & Screen for possible blood transfusion # History of HTN * Hold antihypertensives given the possibility of ischemic colitis # History of dementia with anxiety * Continue home dose of Zoloft * Hold olanzapine - Full liquid diet - Mild painpathway - DVT prophylaxis with ALPS only - Full code As Ranked By This Provider Problem List: 1. Hyperlipidemia 2. Hypertension 3. Temporary limb weakness 4. Lower GI bleed Core Measures/Miscellaneous Acute Coronary Syndrome ACS Diagnosis: No Cerebrovascular Accident CVA/TIA Diagnosis: No Congestive Heart Failure CHF Diagnosis: No Venous Thromboembolism VTE Risk Factors: Age > 40 No [facility] VTE prophylaxis d/t: No contraindications No VTE Pharm Prophylaxis d/t: No contraindications VTE Diagnosis: No VTE Type: NONE VTE Confirmed by (Test): NONE Severe Sepsis Severe Sepsis Present: No Septic Shock Septic Shock Present: No Miscellaneous Documentation Attending Case Discussed With: NORMAN MORATAYA MD Primary Care Physician: LUDMILA SINGH Patient sees these Specialists See HPI Level of Patient Care: General Medicine HASMUKH SNOWDEN 01/30/177: General Information and HPI Allergies/Medications Home Med list Amlodipine Besylate 2.5 MG TABLET 1 TAB PO QAM HTN (Reported) Atorvastatin Calcium 20 MG TABLET 1 TAB PO QHS CHOLESTEROL (Reported) Cholecalciferol (Vitamin D3) (Vitamin D) 2,000 UNIT CAPSULE 1 TAB PO DAILY SUPP (Reported) Metoprolol Tartrate 50 MG TABLET 1 TAB PO BID HTN (Reported) Sertraline HCl 25 MG TABLET 1 TAB PO DAILY DEPRESSION (Reported) Resident Review Statement Resident Statement: examined this patient, discussed with intern architect, agreed with intern architect, reviewed images Other Findings: CC:" Bloody bowel movement" This is a 71-year-old lady with past medical history significant for hypertension, hyperlipidemia, remote history of external hemorrhoids, early stage dementia who presents to the hospital with 3 episodes of bright red blood per rectum. Please see above for more details. VSS. AAO 3, NAD. HEENT: H NCAT, PERRLA, EOMI. Normal pharynx, moist mucous membrane. Neck: Supple, no JVD, no carotid bruit, no thyromegaly, no lymphadenopathy. CV: RRR, no murmur. Lungs CTA BL. Abdomen: Normal bowel sounds, soft, NT, ND. Extremities: No edema, pulses intact. Neurology: Normal speech, cranial nerves III-12 intact, normal sensation and reflexes. Pertinent lab data on admission: WBC 11.2, hemoglobin 10.9 (baseline 9.3 in February 2017), MCV 88.7, RDW 15.7, No coagulopathy, BP unremarkable, UA negative EKG on admission: Sinus rhythm, rate 71, no ST-T wave abnormalities, QTC 431. Problem list/plan: #Bright red blood per rectum: Patient has stable vital signs stable H&H. Will hold all antihypertensives including amlodipine and metoprolol for now given orthostatic was positive at the time of the interview. No need for IV fluid therapy at the moment given patient's blood pressure is in 150s systolic. Check CBC every 6 hours to monitor H&H. Type and crossmatch sent. Will check orthostatics. GI was notified by the ED, will call for a formal consult. Clear liquid diet. 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 #DVT prophylaxis: Alps #Patient is full code. HOOD,AARTEE 01/31/17 0026: Attending MD Review Statement Attending Statement Attending MD Statement: examined this patient, discuss w/resident/PA/PUMP ASSEMBLER, agreed w/resident/PA/PUMP ASSEMBLER, discussed with family, reviewed EMR data (avail), reviewed images, amended to note Attending Assessment/Plan: CC: BRBPR with Stool PMH: HTN, HLD, ?Early dementia Bangladeshi speaking patient was brought in ER by her daughter for bright red blood mixed with stool, one episode yesterday and 2 episodes today, not associated with pain, presyncope or syncope symptoms, chest pain, shortness of breath, fever or chills. Patient is unable to quantify the amount of blood. She denies vomiting, mild nausea present. No fever or chills, no different food intake. Never had similar episodes in the past, does not have long standing history of constipation. Patient did not undergo colonoscopy in the past. History is obtained from daughter, patient does not speak Ugandan. Vitals: Afebrile, pulse 60s, respiration 20s, blood pressure 159/73, saturating well on room air. On exam: A O 3, cooperative, no acute distress, neck supple, no JVD, no lymphadenopathy, mucosa moist, no focal neurological deficit, no dependent edema , no obvious skin rashes or inflammation CVS: S1-S2, RRR. RS: Clear to auscultate bilaterally. Abdomen: Soft, NT, ND, bowel sounds present. Rectal exam done by ER physician shows small streak of bright red blood on dip of glove, heme positive. Labs WBC 11.2, hemoglobin 10.9 (her hemoglobin in December was 11.2), MCV 88.7, RDW 15.7, platelets 259, Glucose 118, AST 37, troponin less than 0.01, INR 0.97 otherwise BMP, LFT unremarkable. A and P #1 BRBPR with stool: Painless, no similar history in the past, patient has mild nausea and dizziness on and off not associated with presyncopal or syncopal symptoms or chest pain. Does not have a history of long-standing constipation. When I checked blood pressure in lying down and sitting position that pressure changed from 159/67 to 139/66, patient asymptomatic, no change in pulse. Given patient's persistently hypertensive in ER, I would hold off IV fluids for now. Suspect diverticular bleed. This likely ischemic or infectious - Admit to general medicine floor - Check H and H again in 6 hours - Close watch on blood pressure - GI consult for morning - GI was consulted from ER, the did not mention anything about bowel prep tonight. - Oral antihypertensives - Continue full liquid diet for now until seen by GI. - type & Screen 2 units PRBC #2 hold olanzapine, continue sertraline. #3 DVT prophylaxis with Alps only, currently admitted for GI bleed #4 as patient does not speak or understand Ugandan, wantburton to be involved and informed about care and decision-making.
[2017-01-30 23:05] VITALS: BP 153/84
--- NOTE | 2017-01-31 00:28 | Admission Certification ---
Admission Certification Certification Statement - As attending physician, I certify that at the time of - admission, based on clinical presentation, severity of - symptoms, need for further diagnostic testing and - therapeutic interventions, and risk of adverse outcomes - without in-hospital treatment, in my clinical assessment, - this patient requires an acute hospital stay for a minimum - of two nights or longer. I have also considered psychsocial - factors such as support system, advanced age, financial - issues, cognitive issues, and failed out-patient treatments, - past re-admission history, safety of patient, and lack of - compliance as applicable. Specific rationale supporting this admission is: Bright red blood per rectum mixed with stool
[2017-01-31 03:05] LABS: ABSOLUTE BASOPHIL COUNT 0 /CUMM (0.0-0.2); ABSOLUTE EOSINOPHIL COUNT 0.4 /CUMM (0.0-0.7); ABSOLUTE GRANULOCYTE CT 5.8 /CUMM (1.4-6.5); ABSOLUTE LYMPH COUNT 4.1 /CUMM (1.2-3.4); ABSOLUTE MONOCYTE COUNT 0.9 /CUMM (0.10-0.60); BASOPHIL % 0.4 % (0.0-2.0); EOSINOPHIL % 3.4 % (0-5); GRANULOCYTE % 51.7 % (42.2-75.2); HEMATOCRIT 30.2 % (37-47); MEAN CORPUSCULAR HGB 29.3 PG (27.0-31.0); MEAN CORPUSCULAR HGB CONC 33.4 G/DL (33.0-37.0); MEAN CORPUSCULAR VOLUME 87.8 FL (81.0-99.0); MEAN PLATELET VOLUME 8.3 FL (7.4-10.4); PLATELET COUNT 229 /CUMM (130-400); RBC DISTRIBUTION WIDTH 15.4 % (11.5-14.5); RED BLOOD CELL CT 3.44 /CUMM (4.20-5.40); WHITE BLOOD CELL COUNT 11.2 /CUMM (4.8-10.8)
[2017-01-31 07:01] VITALS: BP 148/82
--- NOTE | 2017-01-31 07:59 | PN- Housestaff ---
[facility] 01/31/[facility] 0759: Subjective Follow-up For: -Bright red blood per rectum -Hypertension -Hyperlipidemia -Early dementia Subjective: Afebrile, hemodynamically stable with mildly elevated blood pressure, saturating well on room air, no acute overnight events reported. Patient speaks only Venezuelan, her son in law was at bedside and helped in translation. Patient reported symptom of acid reflux earlier this morning. She denies any abdominal pain, nausea, vomiting, fever, chills. Patient denies chest pain, shortness breath, or palpitation. Review of Systems Constitutional: Reports: see HPI. Objective Last 24 Hrs of Vital Signs/I&O Vital Signs Date Time Temp Pulse Resp B/P Pulse O2 O2 Flow FiO2 Ox Delivery Rate 01/31 1050 68 142/78 01/31 0701 98.7 60 18 148/82 95 Room Air 01/30 2305 98.6 62 20 153/84 95 Room Air 01/30 2233 97.8 65 18 154/70 96 Room Air 01/30 2113 97.3 64 20 163/73 98 Room Air 01/30 1920 72 159/73 01/30 1808 98.6 76 20 156/87 97 Room Air Intake & Output 01/31 1600 01/31 0800 01/31 0000 Intake Total 200 Output Total 400 200 Balance -400 0 Intake, Oral 200 Number 1 Bowel Movements Output, Urine 400 200 Patient 66.678 kg Weight Physical Exam General Appearance: Alert, Oriented X3, Cooperative, No Acute Distress HEENT: Atraumatic, PERRLA, EOMI, Mucous Membr. moist/pink Cardiovascular: Regular Rate, Normal S1, Normal S2, No Murmurs Lungs: Clear to Auscultation, Normal Air Movement Abdomen: Normal Bowel Sounds, Soft, No Tenderness Neurological: Normal Speech Extremities: No Clubbing, No Cyanosis, No Edema Vascular: Normal Pulses Current Medications: Current Medications Sig/Paris Start time Last Medication Dose Route Stop Time Status Admin Amlodipine Besylate 2.5 MG QAM 01/31 1000 CAN PO Atorvastatin Calcium 20 MG AT BEDTIME 01/31 2200 AC PO Metoprolol Tartrate 50 MG BID 01/31 1000 AC 01/31 PO 1050 Sertraline HCl 25 MG DAILY 01/31 1000 AC 01/31 PO 1050 Sodium Chloride 1,000 ML Q13H 04/11 2200 CAN IV Last 24 Hrs of Lab/Evangelist Results Last 24 Hrs of Labs/Mics: Laboratory Tests 01/31/17 1115: Anion Gap 11, Estimated GFR > 60, BUN/Creatinine Ratio 14.3, Iron 73, TIBC 290, Ferritin 63.2, Vitamin B12 Pending, Folate Pending, CBC w Diff NO MAN DIFF REQ, RBC 3.40 L, MCV 87.8, MCH 30.0, RDW 15.3 H, MPV 8.6, Gran % 59.5, Lymphocytes % 30.6, Monocytes % 7.4, Eosinophils % 2.1, Basophils % 0.4, Absolute Granulocytes 5.1, Absolute Lymphocytes 2.6, Absolute Monocytes 0.6, Absolute Eosinophils 0.2, Absolute Basophils 0, PUBS MCHC 34.2 01/31/17 0705: Sodium Cancelled, Potassium Cancelled, Chloride Cancelled, Carbon Dioxide Cancelled, Anion Gap Cancelled, BUN Cancelled, Creatinine Cancelled, BUN/ Creatinine Ratio Cancelled 01/31/17 0235: CBC w Diff NO MAN DIFF REQ, RBC 3.44 L, MCV 87.8, MCH 29.3, RDW 15.4 H, MPV 8.3, Gran % 51.7, Lymphocytes % 36.6, Monocytes % 7.9, Eosinophils % 3.4, Basophils % 0.4, Absolute Granulocytes 5.8, Absolute Lymphocytes 4.1 H, Absolute Monocytes 0.9 H, Absolute Eosinophils 0.4, Absolute Basophils 0, PUBS MCHC 33.4 01/30/17 1930: Anion Gap 13, Estimated GFR > 60, BUN/Creatinine Ratio 16.7, Glucose 118 H, Calcium 9.5, Total Bilirubin 0.3, AST 37 H, ALT 43, Alkaline Phosphatase 63, Troponin I < 0.01, Total Protein 8.2, Albumin 4.5, Globulin 3.7, Albumin/ Globulin Ratio 1.2, PT 10.2, INR 0.97, APTT 30, CBC w Diff NO MAN DIFF REQ, RBC 3.72 L, MCV 88.7, MCH 29.2, RDW 15.7 H, MPV 8.1, Gran % 56.0, Lymphocytes % 32.7, Monocytes % 7.8, Eosinophils % 3.2, Basophils % 0.3, Absolute Granulocytes 6.3, Absolute Lymphocytes 3.7 H, Absolute Monocytes 0.9 H, Absolute Eosinophils 0.4, Absolute Basophils 0, PUBS MCHC 32.9 L, Urine Color YEL, Urine Clarity CLEAR, Urine pH 6.0, Ur Specific [place] 1.010, Urine Protein NEG, Urine Ketones NEG, Urine Nitrite NEG, Urine Bilirubin NEG, Urine Urobilinogen 0.2, Ur Leukocyte Esterase NEG, Ur Microscopic SEDIMENT EXAMINED, Urine RBC RARE, Urine WBC RARE, Urine Hemoglobin SMALL H, Urine Glucose NEG Assessment/Plan Assessment: Ms. Britton is a 71 year-old Venezuelan speaking lady with a PMH significant for early stage dementia, HTN, and HLD, recently admitted recently to [facility] for pneumonia, who presents after 3 episodes of hematochezia since yesterday. # Hematochezia CT abd/pelvis (01/30): Moderate to large amount of stool in the rectum, which could reflect fecal impaction. No evidence of bowel obstruction or inflammation. She had stable H&H since admission. * Check CBC every 12 * NPO midnight for colonoscopy in am * Golytely at 9 pm tonight # History of HTN * Continue metoprolol #Hyperlipidemia * Continue statin # History of dementia with anxiety * Continue home dose of Zoloft * Hold olanzapine - Full liquid diet - Mild painpathway - DVT prophylaxis with ALPS only - Full code Problem List: 1. Hypertension 2. Hyperlipidemia 3. Lower GI bleed Pain Ratin Pain Location: na Pain Goal: Remain pain free Pain Plan: See assessment and plan Tomorrow's Labs & Rationales: CBC to follow-up H&H given the GI bleeding DOMONIQUE STEVE 01/31/17 1135: Attending MD Review Statement Attending Statement Attending MD Statement: examined this patient, discuss w/resident/PA/GAMEROOM TECHNICIAN, agreed w/resident/PA/GAMEROOM TECHNICIAN, discussed with family, reviewed EMR data (avail), discussed with nursing, discussed with case mgmt, reviewed images Attending Assessment/Plan: ASSESSMENT 1. BRBPR 2. dizziness 3. Hypertension 4. As per PMH PLAN - Admitted to inpatient medical services. I anticipate > 2 midnight stay 2/2 acute clinical problems - serial cbc monitoring, transfuse if hb<7 - GI consult possible colonoscopy i/p vs o/p. - hold olanzapine, continue sertraline. - GI/DVT prophylaxis with Alps only, currently admitted for GI bleed. - full code - case management consult d/c planning.
--- NOTE | 2017-01-31 08:11 | PN- Student ---
Subjective Subjective: CC: "Bloody bowel movement" HPI: Ms. Britton is a 71 year-old Slovak speaking woman with a past medical history significant for early stage dementia, hypertension, hyperlipidemia, and a remote history of external hemorrhoids who was recently admitted to [facility] complaining of 3 episodes of bright red blood per rectum that began 07/2017. Per the patient's daughter at the bedside, the patient had a large amount of bright red blood on top of the stools followed by 2 additional episodes yesterday, prompting them to come into the ER. Patient unable to quantify the amount of blood. Denies vomiting. Mild nausea present. No fevers or chills. Never had similar episodes in the past with no longstanding history of constipation. Patient never underwent a colonoscopy in the past. 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 Only speaks Slovak. Denies EtOH use, illicit drug use, and denies having ever smoked. Allergies: No know allergies Home Med list Amlodipine Besylate 2.5 MG TABLET 1 TAB PO QAM HTN (Reported) Atorvastatin Calcium 20 MG TABLET 1 TAB PO QHS CHOLESTEROL (Reported) Cholecalciferol (Vitamin D3) (Vitamin D) 2,000 UNIT CAPSULE 1 TAB PO DAILY SUPP (Reported) Metoprolol Tartrate 50 MG TABLET 1 TAB PO BID HTN (Reported) Sertraline HCl 25 MG TABLET 1 TAB PO DAILY DEPRESSION (Reported) Review of Systems Constitutional: Reports: see HPI. Objective Objective: Vital Signs Date Time Temp Pulse Resp B/P Pulse O2 O2 Flow FiO2 Ox Delivery Rate 01/31 0701 98.7 60 18 148/82 95 Room Air 01/30 2305 98.6 62 20 153/84 95 Room Air 01/30 2233 97.8 65 18 154/70 96 Room Air 01/30 2113 97.3 64 20 163/73 98 Room Air 01/30 1920 72 159/73 01/30 1808 98.6 76 20 156/87 97 Room Air Intake & Output 01/31 1600 01/31 0800 01/31 0000 Intake Total 200 Output Total 400 200 Balance -400 0 Intake, Oral 200 Output, Urine 400 200 Patient 147 lb Weight Physical Exam General: Appearance Alert, Oriented X3, Cooperative, No Acute Distress Skin: No Rashes, No Breakdown, No Significant Lesion HEENT: Atraumatic, PERRLA, EOMI, Dry mucous membranes Neck: Supple, No JVD, No LAD Cardiovascular: Regular Rate, Normal S1, Normal S2, No Murmurs, Gallops, Rubs Lungs: Clear to Auscultation, Normal Air Movement Abdomen: Normal Bowel Sounds, Soft, No Tenderness Extremities: No Clubbing, No Cyanosis, No Edema, Normal Pulses, No Tenderness/ Swelling Current Medications Sig/Paris Start time Last Medication Dose Route Stop Time Status Admin Amlodipine Besylate 2.5 MG QAM 01/31 1000 CAN PO Atorvastatin Calcium 20 MG AT BEDTIME 01/31 2200 AC PO Metoprolol Tartrate 50 MG BID 01/31 1000 AC 01/31 PO 1050 Sertraline HCl 25 MG DAILY 01/31 1000 AC 01/31 PO 1050 Sodium Chloride 1,000 ML Q13H 01/30 2200 CAN IV Assessment/Plan Assessment: Ms. Britton is a 71 year-old Slovak speaking woman with a past medical history significant for early stage dementia, hypertension, hyperlipidemia, and remote history of external hemorrhoids who was recently admitted to [facility] for 3 episodes of bright red blood per rectum since 01/29/2017. Patient unable to quantify the amount of blood. 1 - Bright red blood per rectum: CT abd/pelvis (12/26/16): Moderate to large amount of stool in the rectum, which could reflect fecal impaction. No evidence of bowel obstruction or inflammation. GI consult for possible colonoscopy Check complete blood count every 12 hours. Transfuse if hemoglobin < 7 2 - History of hypertension Continue with Metoprolol Tartrate 3 - Hyperlipidemia Continue with statin 4 - History of dementia with anxiety Continue home dose of Zoloft Hold olanzapine. - Full liquid diet - Mild painpathway - DVT prophylaxis with ALPS only - Full code 2. Hypertension 3. Temporary limb weakness 4. Lower GI bleed
[2017-01-31 11:50] LABS: ABSOLUTE BASOPHIL COUNT 0 /CUMM (0.0-0.2); ABSOLUTE EOSINOPHIL COUNT 0.2 /CUMM (0.0-0.7); ABSOLUTE GRANULOCYTE CT 5.1 /CUMM (1.4-6.5); ABSOLUTE LYMPH COUNT 2.6 /CUMM (1.2-3.4); ABSOLUTE MONOCYTE COUNT 0.6 /CUMM (0.10-0.60); BASOPHIL % 0.4 % (0.0-2.0); EOSINOPHIL % 2.1 % (0-5); GRANULOCYTE % 59.5 % (42.2-75.2); HEMATOCRIT 29.9 % (37-47); MEAN CORPUSCULAR HGB CONC 34.2 G/DL (33.0-37.0); MEAN CORPUSCULAR VOLUME 87.8 FL (81.0-99.0); MEAN PLATELET VOLUME 8.6 FL (7.4-10.4); PLATELET COUNT 223 /CUMM (130-400); RBC DISTRIBUTION WIDTH 15.3 % (11.5-14.5); WHITE BLOOD CELL COUNT 8.5 /CUMM (4.8-10.8)
[2017-01-31 14:46] VITALS: BP 136/72
--- NOTE | 2017-01-31 15:24 | Patient Discharge Instructions ---
Discharge Instructions General Discharge Information You were seen/treated for: GI BLEEDING Special Instructions: PLEASE FOLLOW UP WITH PCP AND GI WITHIN ONE WEEK PLEASE COME BACK IF SYMPTOMS OF MASSIVE BLEEDING STARTED BEFORE YOU SEE GI Diet Continue normal diet: Yes Recommended Diet: Regular Activity Full Activity/No Limits: No Activity Self Limited: No Acute Coronary Syndrome Inclusion Criteria At DC or during hospital stay patient has or had the following: ACS DIAGNOSIS No Discharge Core Measures Meds if any: Prescribed or Continued at Discharge Meds if any: NOT Prescribed or Continued at Discharge Congestive Heart Failure Inclusion Criteria At DC or during hospital stay patient has or had the following: CHF DIAGNOSIS No Discharge Core Measures Meds if any: Prescribed or Continued at Discharge Meds if any: NOT Prescribed or Continued at Discharge Cerebrovascular accident Inclusion Criteria At DC or during hospital stay patient has or had the following: CVA/TIA Diagnosis No Discharge Core Measures Meds if any: Prescribed or Continued at Discharge Meds if any: NOT Prescribed or Continued at Discharge Venous thromboembolism Inclusion Criteria VTE Diagnosis No VTE Type NONE VTE Confirmed by (Test) NONE Discharge Core Measures - Per Current guidelines, there needs to be overlap - treatment for the first 5 days of Warfarin therapy. - If discharged on Warfarin prior to 5 days of - overlap therapy, the patient will need to be - assessed for post discharge needs including - *Post discharge parental anticoagulation - *Warfarin and/or parental anticoagulation education - *Follow up date to check INR post discharge At least 5 days overlap therapy as Inpatient No Meds if any: Prescribed or Continued at Discharge Note: Overlap Therapy is Warfarin and Anticoagulant Meds if any: NOT Prescribed or Continued at Discharge
--- NOTE | 2017-01-31 15:42 | Cons- Gastroenterology ---
General Information and HPI Consulting Request Date of Consult: 01/31/17 Requested By: EVI LUO,DOMONIQUE Reason for Consult: I was notified earlier today of a request for a GI consult to evaluate scant rectal bleeding. GI coverage was notified by the ER last evening, but a bowel prep was not ordered. *The history was obtained in the presence of the patient's daughter/FELICIA, Koby Higgins, who translated to her mother, who speaks Finnish. Additionally, the patient has some mild dementia, & is A & O x 2 (not to time). Source of Information: patient, family (pt's dtr/POKortney,Koby Higgins), old records Exam Limitations: clinical condition, confusion, dementia, poor historian, language barrier (pt's dtr/FELICIA, Koby Higgins) History of Present Illness: 71-year-old Finnish female, HTN/HLD/mild OBS/osteoporosis, recently admitted to [facility] 12/27/2016 - 12/31/2016, with community acquired pneumonia, treated with Ceftriaxone and Azithromycin, followed by Augmentin, for 1 week total of antibiotics. The patient is not on any antiplatelet therapy, NSAIDs, or aspirin. She presents to the [facility] ER 01/30/2017 at 6:04 p.m., with rectal bleeding, according to her daughter/STEPHANIEA, Koby Higgins. Upon arrival, she was hypertensive, not tachycardic, and afebrile, with normal O2 sat. According to her daughter, the rectal bleeding started 01/29/2017, and was described as painless bright red blood per rectum, occurring only after defecation of brown stool, without any spontaneous lower GI bleeding or melena. The patient's daughter called her mother's PMD, who advised going to the ER. The patient denied any rectal pain, abdominal pain, diarrhea, constipation, obstipation, tenesmus, or change in stool caliber. There was no weight loss or change in appetite. There was minimal nausea without any vomiting, and perhaps some rare symptoms of reflux, without any hematemesis. The patient has never had a colonoscopy. There was noted associated chest pain, shortness of breath, loss of consciousness, or palpitations. There is no history of rectal trauma. According to the family, the patient had a history of hemorrhoids 10 years ago. There is no family history of colon cancer, GI malignancy, IBD, inherited liver disease, or any other significant GI diseases. *The patient is chronically anemic, but has never been transfused. Her baseline Hgb is in the 9-10 range, dating back a few years. The patient apparently was initially admitted for observation, but is now a formal admission. Our GI coverage was notified by the ER last evening, however a bowel prep was not ordered prior to this consult. The patient has been on clears po all day, and she has not had any significant bleeding this afternoon. A digital rectal exam done by myself 01/31/2017 showed brown stool, OB negative. The patient's family is fairly insistent that a colonoscopy be done as an inpatient, although the above seemed to be an outpatient workup. 01/30/2017: Admission labs- WBC 11.2, H/H 10.9/33, normal MCV, PLT 259, PT 10.2, INR 0.97, PTT 30, glucose 118, BUN/Cr 15/0.9, GFR > 60, normal electrolytes including bicarbonate 28, AG 13, Ca 9.5, albumin 4.5, globulin 3.7, TBil 0.3, alk phos 63, AST 37, ALT 43, troponin < .01; U/A- neg except small Hgb (per medical team). 01/31/2017: Fe 73, TIBC 290, Fe sat 25.2%, ferrtin 63.2, B12 581, folate > 20 : EKG- NSR @ 71, normal axis, borderline 1st degree AVB, LVH, without acute ischemia. No recent imaging studies, aside form last admssion for PNA: 12/26/2016: XRY-CHEST XRAY, [place] AND LATERAL- Cardiomegaly. No acute change of the chest. 12/26/2016: CT ABDOMEN AND PELVIS WITH IV CONTRAST- 1. Patchy regions of pulmonary consolidation in the lingula and left lower lobe, suspicious for pneumonia. 2. Moderate to large amount of stool in the rectum, which could reflect fecal impaction. No evidence of bowel obstruction or inflammation. Allergies/Medications Allergies: Coded Allergies: No Known Allergies (01/30/17) Home Med List: Amlodipine Besylate 2.5 MG TABLET 1 TAB PO QAM HTN (Reported) Atorvastatin Calcium 20 MG TABLET 1 TAB PO QHS CHOLESTEROL (Reported) Cholecalciferol (Vitamin D3) (Vitamin D) 2,000 UNIT CAPSULE 1 TAB PO DAILY SUPP (Reported) Metoprolol Tartrate 50 MG TABLET 1 TAB PO BID HTN (Reported) Sertraline HCl 25 MG TABLET 1 TAB PO DAILY DEPRESSION (Reported) Current Medications: Current Medications Sig/[place] Start time Last Medication Dose Route Stop Time Status Admin Amlodipine Besylate 2.5 MG QAM 01/31 1000 CAN PO Atorvastatin Calcium 20 MG AT BEDTIME 01/31 2200 AC PO Metoprolol Tartrate 50 MG BID 01/31 1000 AC 01/31 PO 1050 Polyethylene Glycol 1 GAL ONCE ONE 01/31 2100 AC PO 01/31 2101 Sertraline HCl 25 MG DAILY 01/31 1000 AC 01/31 PO 1050 Sodium Chloride 1,000 ML Q13H 01/30 2200 CAN IV Past History Travel History Traveled to [place] past 21 day No Medical History Blood Transfusion Hx: No Neurological: dementia EENT: NONE Cardiovascular: hypertension, hyperlipidemia Respiratory: pneumonia (community acquired 12/27/16) Gastrointestinal: NONE Hepatic: NONE Renal: NONE Musculoskeletal: osteoporosis Psychiatric: NONE Endocrine: osteoporosis Blood Disorders: anemia (baseline Hgb 9-10) Cancer(s): NONE 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 FATHER, , Age 70; Cause: Unknown cause of morbidity or mortality. Psychosocial History Where Do You Live? Home Who Do You Live With? spouse (dtr/POKortney, Koby Higgins), child Services at Home: None Primary Language: Finnish Smoking Status: Never Smoked ETOH Use: denies use Illicit Drug Use: denies illicit drug use Living Will? no Power of Sales Administrator/HCP? yes Name of POA/HCP: jacqui Koby Carlsonlouis [phone] Other Social History: . 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 2 sons & 2 dtrs- [employer]. Born in [facility]. Lives in since 2000. Functional Ability ADLs Independent: dressing, eating, toileting, bathing. Ambulation: independent IADLs Independent: telephone. Needs Assist: shopping, housework, finances, food prep, transportation, medication admin. 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 Review of Systems Constitutional: Denies: chills, diaphoresis, fever, malaise, weakness, unexplained weight loss. EENTM: Denies: blurred vision, double vision, visual changes, eye pain, eye drainage, eye tearing, icterus, ear discharge, ear pain, ear redness, hearing changes, nasal congestion, epistaxis, nasal pain, throat pain, throat swelling, mouth pain, tooth pain. Cardiovascular: Reports: peripheral edema (scant). Denies: chest pain, edema, orthopena, palpitations, syncope. Respiratory: Denies: cough, hemoptysis, orthopnea, short of breath, sputum production, stridor, wheezing. GI: Reports: bloody stool (painless BRBPR post defecation). Denies: abdominal pain, bloating, constipation, diarrhea, distention, bowel incontinence, melena, nausea , changes in stool, vomiting, steatorrhea. Genitourinary: Denies: discharge, dysuria, frequency, hematuria, hesitation, nocturia, pain, urgency. Musculoskeletal: Denies: back pain, gout, joint pain, joint swelling, muscle pain, muscle stiffness, neck pain. Skin: Denies: cysts, change in skin color, change in hair/nails, dryness, erythema, jaundice, lesions, lymphangitis, lumps, moles, rash. Neurological/Psychological: Reports: dementia. Denies: anxiety, ataxia, cognitive dysfunction, confusion, depressed, emotional problems, headache, numbness, paresthesia, pre-existing deficit, petit mal seizures, tingling, tremors, tonic-clonic seizures, unable to move lower ext, unable to move upper ext, weakness. Hematologic/Endocrine: Denies: bruising, bleeding, polyuria, polydipsia. Immunologic/Allergic: Denies: splenectomy, HIV/AIDS, lymphadenopathy. All Other Systems: Reviewed and Negative Exam & Diagnostic Data Vital Signs and I&O Vital Signs Date Time Temp Pulse Resp B/P Pulse O2 O2 Flow FiO2 Ox Delivery Rate 01/31 1446 98.3 65 18 136/72 96 Room Air 01/31 1050 68 142/78 01/31 0701 98.7 60 18 148/82 95 Room Air 01/30 2305 98.6 62 20 153/84 95 Room Air 01/30 2233 97.8 65 18 154/70 96 Room Air 01/30 2113 97.3 64 20 163/73 98 Room Air 01/30 1920 72 159/73 01/30 1808 98.6 76 20 156/87 97 Room Air Intake & Output 01/31 1600 01/31 0400 01/30 04001/29 0400 Intake Total 810 200 Output Total 1150 200 Balance -340 0 Intake, IV 10 Intake, Oral 800 200 Number 1 Bowel Movements Output, Urine 1150 200 Patient 147 lb Weight Physical Exam: Well-developed, well-nourished, elderly female, in no apparent distress. Sclera anicteric. Conjunctiva pink. Oropharynx clear. False upper and lower teeth ( edentulous). No oral thrush. No aphthous ulcers. There is no adenopathy, thyromegaly, or JVD. No peripheral stigmata of inflammatory bowel disease or chronic liver disease on exam. No CVA tenderness. Breast & pelvic exams; API. Lungs: clear to A&P, except for a few crackles at the left base. Heart exam: regular rate rhythm, S1 and S2, with a I/ systolic murmur. Abdominal exam: normal bowel sounds, soft belly, nontender, without guarding or rebound. No mass. No organomegaly. No fluid shift. No pulsatile mass. Digital rectal exam: *just done by myself 01/31/2017 in the presence of the patient's dtr, Teuta- brown, OB-negative stool, nontender, without mass, normal sphincter tone, no fissure, no external hemorrhoid, no perianal disease. Extremities: withoutcyanosis or clubbing. Trace peripheral edema LE B/L. Mild DJD. No rash.No palpable cords. Distal pulses 2+ bilaterally. DTRs 2+ bilaterally. Alert and oriented x 2 (not to time, when translated by pt's dtr). motor 5/5 B/L. Results Pertinent Lab Results: Laboratory Tests 01/31 01/31 1115 0705 Chemistry Sodium (137 - 145 mmol/L) 141 Cancelled Potassium (3.5 - 5.1 mmol/L) 4.1 Cancelled Chloride (98 - 107 mmol/L) 102 Cancelled Carbon Dioxide (22 - 30 mmol/L) 28 Cancelled Anion Gap (5 - 16) 11 Cancelled BUN (7 - 17 mg/dL) 10 Cancelled Creatinine (0.5 - 1.0 mg/dL) 0.7 Cancelled Estimated GFR (>60 ml/min) > 60 BUN/Creatinine Ratio (7 - 25 %) 14.3 Cancelled Iron (37 - 170 ug/dL) 73 TIBC (265 - 497 ug/dL) 290 Ferritin (11.1 - 264 ng/mL) 63.2 Vitamin B12 (239 - 931 pg/mL) 581 Folate (2.76 - 20.0 ng/mL) > 20.0 H Hematology CBC w Diff NO MAN DIFF REQ WBC (4.8 - 10.8 /CUMM) 8.5 RBC (4.20 - 5.40 /CUMM) 3.40 L Hgb (12.0 - 16.0 G/DL) 10.2 L Hct (37 - 47 %) 29.9 L MCV (81.0 - 99.0 FL) 87.8 MCH (27.0 - 31.0 PG) 30.0 RDW (11.5 - 14.5 %) 15.3 H Plt Count (130 - 400 /CUMM) 223 MPV (7.4 - 10.4 FL) 8.6 Gran % (42.2 - 75.2 %) 59.5 Lymphocytes % (20.5 - 51.1 %) 30.6 Monocytes % (1.7 - 9.3 %) 7.4 Eosinophils % (0 - 5 %) 2.1 Basophils % (0.0 - 2.0 %) 0.4 Absolute Granulocytes (1.4 - 6.5 /CUMM) 5.1 Absolute Lymphocytes (1.2 - 3.4 /CUMM) 2.6 Absolute Monocytes (0.10 - 0.60 /CUMM) 0.6 Absolute Eosinophils (0.0 - 0.7 /CUMM) 0.2 Absolute Basophils (0.0 - 0.2 /CUMM) 0 PUBS MCHC (33.0 - 37.0 G/DL) 34.2 01/31 01/30 0235 1930 Chemistry Sodium (137 - 145 mmol/L) 141 Potassium (3.5 - 5.1 mmol/L) 4.2 Chloride (98 - 107 mmol/L) 100 Carbon Dioxide (22 - 30 mmol/L) 28 Anion Gap (5 - 16) 13 BUN (7 - 17 mg/dL) 15 Creatinine (0.5 - 1.0 mg/dL) 0.9 Estimated GFR (>60 ml/min) > 60 BUN/Creatinine Ratio (7 - 25 %) 16.7 Glucose (65 - 99 mg/dL) 118 H Calcium (8.4 - 10.2 mg/dL) 9.5 Total Bilirubin (0.2 - 1.3 mg/dL) 0.3 AST (14 - 36 U/L) 37 H ALT (9 - 52 U/L) 43 Alkaline Phosphatase (<127 U/L) 63 Troponin I (< 0.11 ng/ml) < 0.01 Total Protein (6.3 - 8.2 g/dL) 8.2 Albumin (3.5 - 5.0 g/dL) 4.5 Globulin (1.9 - 4.2 gm/dL) 3.7 Albumin/Globulin Ratio (1.1 - 2.2 %) 1.2 Coagulation PT (9.4 - 12.5 SEC) 10.2 INR (0.90 - 1.19) 0.97 APTT (25 - 37 SEC) 30 Hematology CBC w Diff NO MAN DIFF REQ NO MAN DIFF REQ WBC (4.8 - 10.8 /CUMM) 11.2 H 11.2 H RBC (4.20 - 5.40 /CUMM) 3.44 L 3.72 L Hgb (12.0 - 16.0 G/DL) 10.1 L 10.9 L Hct (37 - 47 %) 30.2 L 33.0 L MCV (81.0 - 99.0 FL) 87.8 88.7 MCH (27.0 - 31.0 PG) 29.3 29.2 RDW (11.5 - 14.5 %) 15.4 H 15.7 H Plt Count (130 - 400 /CUMM) 229 259 MPV (7.4 - 10.4 FL) 8.3 8.1 Gran % (42.2 - 75.2 %) 51.7 56.0 Lymphocytes % (20.5 - 51.1 %) 36.6 32.7 Monocytes % (1.7 - 9.3 %) 7.9 7.8 Eosinophils % (0 - 5 %) 3.4 3.2 Basophils % (0.0 - 2.0 %) 0.4 0.3 Absolute Granulocytes (1.4 - 6.5 /CUMM) 5.8 6.3 Absolute Lymphocytes (1.2 - 3.4 /CUMM) 4.1 H 3.7 H Absolute Monocytes (0.10 - 0.60 /CUMM) 0.9 H 0.9 H Absolute Eosinophils (0.0 - 0.7 /CUMM) 0.4 0.4 Absolute Basophils (0.0 - 0.2 /CUMM) 0 0 PUBS MCHC (33.0 - 37.0 G/DL) 33.4 32.9 L Urines Urine Color (YEL,AMB,STR) YEL Urine Clarity (CLEAR) CLEAR Urine pH (5.0 - 8.0) 6.0 Ur Specific [place] (1.001 - 1.035) 1.010 Urine Protein (NEG,<30 MG/DL) NEG Urine Ketones (NEG) NEG Urine Nitrite (NEG) NEG Urine Bilirubin (NEG) NEG Urine Urobilinogen (0.1 - 1.0 EU/dl) 0.2 Ur Leukocyte Esterase (NEG) NEG Ur Microscopic SEDIMENT EXAMINED Urine RBC (0 - 5 /HPF) RARE Urine WBC (0 - 2 /HPF) RARE Urine Hemoglobin (NEG) SMALL H Urine Glucose (N MG/DL) NEG Imaging/Other Studies: : EKG- NSR @ 71, normal axis, borderline 1st degree AVB, LVH, without acute ischemia. No recent imaging studies, aside form last admssion for PNA: 12/26/2016: XRY-CHEST XRAY, [place] AND LATERAL- Cardiomegaly. No acute change of the chest. 12/26/2016: CT ABDOMEN AND PELVIS WITH IV CONTRAST- 1. Patchy regions of pulmonary consolidation in the lingula and left lower lobe, suspicious for pneumonia. 2. Moderate to large amount of stool in the rectum, which could reflect fecal impaction. No evidence of bowel obstruction or inflammation. Assessment/Plan Assessment/Recommendations: 71-year-old Finnish female, HTN/HLD/mild OBS/osteoporosis, recently admitted to [facility] 12/27/2016 - 12/31/2016, with community acquired pneumonia, treated with Ceftriaxone and Azithromycin, followed by Augmentin, for 1 week total of antibiotics. The patient is not on any antiplatelet therapy, NSAIDs, or aspirin. She presents to the [facility] ER 01/30/2017 at 6:04 p.m., with rectal bleeding, according to her daughter/POA, Koby Higgins. Upon arrival, she was hypertensive, not tachycardic, and afebrile, with normal O2 sat. According to her daughter, the rectal bleeding started 01/29/2017, and was described as painless bright red blood per rectum, occurring only after defecation of brown stool, without any spontaneous lower GI bleeding or melena. The patient's daughter called her mother's PMD, who advised going to the ER. The patient denied any rectal pain, abdominal pain, diarrhea, constipation, obstipation, tenesmus, or change in stool caliber. There was no weight loss or change in appetite. There was minimal nausea without any vomiting, and perhaps some rare symptoms of reflux, without any hematemesis. The patient has never had a colonoscopy. There was noted associated chest pain, shortness of breath, loss of consciousness, or palpitations. There is no history of rectal trauma. According to the family, the patient had a history of hemorrhoids 10 years ago. There is no family history of colon cancer, GI malignancy, IBD, inherited liver disease, or any other significant GI diseases. *The patient is chronically anemic, but has never been transfused. Her baseline Hgb is in the 9-10 range, dating back a few years. The patient apparently was initially admitted for observation, but is now a formal admission. Our GI coverage was notified by the ER last evening, however a bowel prep was not ordered prior to this consult. The patient has been on clears po all day, and she has not had any significant bleeding this afternoon. A digital rectal exam done by myself 01/31/2017 showed brown stool, OB negative. The patient's family is fairly insistent that a colonoscopy be done as an inpatient, although the above seemed to be an outpatient workup. 01/30/2017: Admission labs- WBC 11.2, H/H 10.9/33, normal MCV, PLT 259, PT 10.2, INR 0.97, PTT 30, glucose 118, BUN/Cr 15/0.9, GFR > 60, normal electrolytes including bicarbonate 28, AG 13, Ca 9.5, albumin 4.5, globulin 3.7, TBil 0.3, alk phos 63, AST 37, ALT 43, troponin < .01; U/A- neg except small Hgb (per medical team). 01/31/2017: Fe 73, TIBC 290, Fe sat 25.2%, ferrtin 63.2, B12 581, folate > 20 : EKG- NSR @ 71, normal axis, borderline 1st degree AVB, LVH, without acute ischemia. No recent imaging studies, aside form last admssion for PNA: 12/26/2016: XRY-CHEST XRAY, PA AND LATERAL- Cardiomegaly. No acute change of the chest. 12/26/2016: CT ABDOMEN AND PELVIS WITH IV CONTRAST- 1. Patchy regions of pulmonary consolidation in the lingula and left lower lobe, suspicious for pneumonia. 2. Moderate to large amount of stool in the rectum, which could reflect fecal impaction. No evidence of bowel obstruction or inflammation. *Clinically, the patient does not seem to be having a substantial lower GI bleed. She had scant rectal bleeding, only after defecation of brown stool, without any spontaneous lower GI bleeding or melena. She has no change in bowel habits or constitutional symptoms. The chronic anemia is noted, without change, with stable iron, B12, & folate levels. Her Hgb has not changed substantially and she currently has brown, OB negative stool on digital exam. She has not had a baseline colonoscopy. There is no pertinent family history. Clinically, she does not seem to be having a diverticular bleed or angiodysplasia. Most likely, the above is from an internal hemorrhoid. Rule out polyp, lesion, and/or stercoral ulcer. Doubt proctitis. Her previous CT from last month showed increased stool in the rectum, but on exam, she does not appear to have fecal impaction. I feel that the above workup could include an outpatient colonoscopy, but the patient's daughter/POA, Koby Higgins, feel strongly that the patient remain as an inpatient for her colonoscopy, because of the above mitigating factors, including dementia. SUGGEST: Clears po, then NPO after 11:59 p.m. tonight for colonoscopy on , . GoLYTELY 1 gallon po, over 4-5 hours this evening. Check CBC BID for now. As there is no history of ASHD, keep Hgb > 7. Supplemental O2 as needed. Strict I/O's. *If active bleed, call GI, with patient to ICU, and obtain tagged RBC vs. CTA abdomen as [facility] logistics allow, but I doubt that this will be the case. Informed consent for colonoscopy was obtained from the patient's daughter /POA, Koby Higgins, after careful explanation of the risks and benefits. Based on scheduling, most likely, the colonoscopy will be performed by Dr. Ramos in coverage for myself, tomorrow. *I anticipate the patient being discharged shortly after the colonoscopy. The patient's daughter/POA, Koby Higgins, was given my office number. The above was discussed with Dr. Wood and with the medical housestaff this afternoon. Further recommendations to follow, after Dr. Ramos completes the colonoscopy. Problem List: 1. Lower GI bleed 2. Anemia Copies To: HOOD LUO,NORMAN; EVI LUO,DOMONIQUE; TESS MCDONALD,LUDMILA HERNANDEZ Consult Acknowledgment - Thank you for your consult request.
[2017-01-31 21:38] VITALS: BP 153/68
[2017-02-01 06:49] VITALS: BP 150/80
--- NOTE | 2017-02-01 07:48 | PN- Student ---
Subjective Subjective: No acute overnight events reported. Last bowel movement was yesterday night. Per the nurse, bowel movement was of solid consistency and guaic negative. Patient only speaks Bahraini. Went to scheduled colonoscopy this morning. Daughter was at the bedside to help with translation. Objective Objective: Vital Signs Date Time Temp Pulse Resp B/P Pulse O2 O2 Flow FiO2 Ox Delivery Rate 02/01 1115 69 138/66 02/01 0649 97.3 67 20 150/80 95 Room Air 02/01 0000 Room Air 01/31 2138 97.9 69 20 153/68 93 Room Air 01/31 2040 85 138/90 01/31 1833 Room Air 01/31 1600 96 Room Air Intake & Output 02/01 1600 02/01 0800 02/01 0000 Intake Total 0 1500 Output Total Balance 0 1500 Intake, Oral 0 1500 Assessment/Plan Assessment: Ms. Britton is a 71 year-old Bahraini speaking woman with a past medical history significant for early stage dementia, hypertension, hyperlipidemia, and remote history of external hemorrhoids who was recently admitted to [facility] for 3 episodes of bright red blood per rectum since 01/29/2017. Patient unable to quantify the amount of blood. 1 - Bright red blood per rectum: - Internal hemorrhoids, extensive left-sided diverticula, and colon polyps status post polypectomy found on colonoscopy. Follow up with GI in 2 weeks for pathology results. - Start low fat, high fiber diet with Fibercon 2 tabs daily 2 - History of hypertension - Continue with Metoprolol Tartrate 3 - Hyperlipidemia - Continue with statin 4 - History of dementia with anxiety - Continue home dose of Zoloft - Hold olanzapine. - Discharge home today 2 - History of hypertension Continue with Metoprolol Tartrate 3 - Hyperlipidemia Continue with statin 4 - History of dementia with anxiety Continue home dose of Zoloft Hold olanzapine. - Discharge home today - Full liquid diet - Mild painpathway - DVT prophylaxis with ALPS only - Full code
--- NOTE | 2017-02-01 07:56 | Proc Note Colonoscopy ---
Colonoscopy Procedure Medical History: unchanged Mental Status: alert/oriented (A & O x 2(consent from POA)) Heart/Lung Eval Prior to Sedation: within normal limits Candidate for Sedation? Yes Date of Last Colonoscopy: Never Procedure Date: 02/01/17 Procedure Type: colonoscopy polyp/biopsy (*at different sites) Aircraft Cabin Cleaner: ABBY TREADWELL MD ASA Classification: III Indications: (*Refer to GI consult of 01/31/2017)- INDX: 71 y/o Green[place]ic female, HTN/HLD/OBS/painless rectal bleeding post defecation, without spontaneous lower GI bleeding or melena. History of hemorrhoids. No FHx of colon Ca or IBD. Stable anemia, without change. Normal iron saturation, ferritin, B12, and folate levels. Informed consent for colonoscopy was obtained from the patient's daughter/POA, Koby Higgins, after careful explanation of the risks and benefits. The patient was compliant with 1 gallon of GoLYTELY. Baseline colonoscopy. Instrument (Colonoscope): single channel Meds Received: MAC Patient's Tolerance: good Complications: none Extent Reached: cecum Prep: good Procedure: Baseline colonoscopy to the cecum, with biopsy and hot snare polypectomy 1 ( done at different sites), was performed with the Olympus high-definition videocolonoscope, after obtaining informed consent from the patient, with the tailor women's garment alteration and pulse oximeter, after 1 gallon of GoLYTELY, with the assistance of Dr. Schmid, of [facility]. The prep was good. The patient was in the left lateral decubitus position for the majority of the procedure, then was transiently switched to the supine position, in order to inspect the lower right colon and cecum. Direct views of the rectum failed to reveal any external hemorrhoids, fissures, or perianal disease. Digital rectal exam was unremarkable, without any masses. Sphincter tone was normal. Retroflexion in the rectum failed to reveal any gross proctitis, rectal ulcers or rectal lesions. There were mild to moderate internal hemorrhoids, without any active bleeding. The colonic mucosa was carefully inspected, both upon insertion and upon withdrawal of the colonoscope. Withdrawal time was certainly adequate. There were fairly extensive left-sided diverticula. There were no strictures, although the lumen was somewhat tortuous, causing me to reposition the patient, as above. I did not appreciate any proximal diverticula. The cecum, base of the appendix, and ileocecal valve were all identified. Confirmatory photographs were obtained. I did not enter the terminal ileum. 2 sessile polyps, both positive by NBI, were seen and removed as follows, upon exiting the colon: (Specimen A- 1.2 cm left colon polyp at 45 cm, completely removed via hot snare polypectomy, using 25 W/pure coag. Specimen B- 4 mm left colon polyp at 35 cm, completely removed via cold biopsies). The above polypectomy sites were irrigated with the water jet, observed for several minutes postoperatively, and were stable, without any significant bleeding. The colonic mucosa otherwise appeared intact and within normal limits to the cecum, without any additional polyps, lesions, gross colitis, or angiodysplasias. No active lower GI bleeding was seen. The patient tolerated the procedure well. *Documenting photographs were obtained and placed inside the patient's chart postoperatively. Impression: 1. Mild to moderate internal hemorrhoids, without any active bleeding (which seem to have been the cause of the admission). 2. Fairly extensive left-sided diverticula, with tortuous lumen. 3. 1.2 cm sessile left colon polyp at 45 cm, positive by NBI, completely removed via hot snare polypectomy, using 25 W/pure coag, and retrieved via suction: (Specimen A). 4. 4 mm sessile left colon polyp at 35 cm, positive by NBI, completely removed via cold biopsies: (Specimen B). Recommendations: Await colon polyp pathology. The patient's daughter/POA, Koby Higgins, was advised to contact me within 2 weeks for the pathology results, as the patient has OBS. (*For future reference, her contact numbers are [phone] & ). Start 2 g sodium, low-fat, heart healthy, high-fiber diet, plus Fibercon 2 tabs daily. Local care as needed, regarding internal hemorrhoids. Okay from GI perspective for discharge to home today. The frequency of follow-up surveillance colonoscopy will be based on the pathology results. Assuming the polyp is a benign adenoma or serrated polyp, most likely, in 3 years (i.e.2019). If the above polyps are purely hyperplastic in nature, as there is no pertinent family history and this is a baseline study, most likely, there will be no need for a repeat colonoscopy in 10 years, based on the patient's advanced age. Definitive recommendations for the interval of follow-up colonoscopy will be made after reviewing the pathology. The above findings and recommendations were discussed with the patient's daughter/STEPHANIEA, Koby Higgins, in the GI suite postoperatively, and with the patient's RN on North. There is no need for outpatient GI follow-up, unless something new arises. The pathology results will be communicated by phone. Further inpatient GI follow up as needed. ADDENDUM: 02/02/2017- A. 1.2 CM SESSILE LEFT COLON POLYP AT 45 CM, COMPLETELY REMOVED VIA HOT SNARE: TUBULOVILLOUS ADENOMA. NEGATIVE FOR EVIDENCE OF INVASIVE CARCINOMA. B. 4 MM SESSILE LEFT COLON POLYP AT 35 CM, COMPLETELY REMOVED VIA BIOPSIES: TUBULAR ADENOMA. NEGATIVE FOR INVASIVE CARCINOMA. Dictated by: BRIAN CARRENO MD The pt was D/C to home yesterday, on 02/01/2017. I called the patient's daughter /STEPHANIEA, Koby Higgins, this p.m., regarding the benign TVA & TA, as the patient has OBS. (*For future reference, her contact numbers are [phone] & [phone]). 2 g sodium, low-fat, heart healthy, high-fiber diet, plus Fibercon 2 tabs daily. Local care as needed, regarding internal hemorrhoids. As the polyps were benign TVA/TA, I advised a repeat colonoscopy in 3 years (i.e.- 2019). There is no need for outpatient GI follow-up, unless something new arises. Follow-up with PMD, as per routine. Followup Colonscopy Screen In: pending biopsy result(s) CC: HOOD LUO,NORMAN; EVI LUO,DOMONIQUE; TESS MCDONALD,LUDMILA HERNANDEZ
[2017-02-01 08:28] LABS: ABSOLUTE BASOPHIL COUNT 0 /CUMM (0.0-0.2); ABSOLUTE EOSINOPHIL COUNT 0.3 /CUMM (0.0-0.7); ABSOLUTE GRANULOCYTE CT 6.3 /CUMM (1.4-6.5); ABSOLUTE LYMPH COUNT 3.8 /CUMM (1.2-3.4); ABSOLUTE MONOCYTE COUNT 0.7 /CUMM (0.10-0.60); BASOPHIL % 0.3 % (0.0-2.0); EOSINOPHIL % 2.4 % (0-5); GRANULOCYTE % 56.5 % (42.2-75.2); HEMATOCRIT 33.1 % (37-47); MEAN CORPUSCULAR HGB 29.7 PG (27.0-31.0); MEAN CORPUSCULAR HGB CONC 33.5 G/DL (33.0-37.0); MEAN CORPUSCULAR VOLUME 88.7 FL (81.0-99.0); MEAN PLATELET VOLUME 8.7 FL (7.4-10.4); PLATELET COUNT 255 /CUMM (130-400); RBC DISTRIBUTION WIDTH 15.4 % (11.5-14.5); RED BLOOD CELL CT 3.73 /CUMM (4.20-5.40); WHITE BLOOD CELL COUNT 11.1 /CUMM (4.8-10.8)
--- NOTE | 2017-02-01 11:05 | PN- Housestaff ---
[facility]5: Subjective Follow-up For: -Bright red blood per rectum -Hypertension -Hyperlipidemia -Early dementia Subjective: Afebrile, hemodynamically stable, saturating well on room air, no acute overnight events reported. Patient speaks only Ukrainian, patient went for colonoscopy earlier this morning. She denies any abdominal pain, nausea, vomiting, fever, chills. Patient denies chest pain, shortness breath, or palpitation. Review of Systems Constitutional: Reports: no symptoms. Objective Last 24 Hrs of Vital Signs/I&O Vital Signs Date Time Temp Pulse Resp B/P Pulse O2 O2 Flow FiO2 Ox Delivery Rate 02/01 1115 69 138/66 02/01 0649 97.3 67 20 150/80 95 Room Air 02/01 0000 Room Air 01/31 2138 97.9 69 20 153/68 93 Room Air 01/31 2040 85 138/90 01/31 1833 Room Air 01/31 1600 96 Room Air Intake & Output 02/01 1600 02/01 0800 02/01 0000 Intake Total 0 1500 Output Total Balance 0 1500 Intake, Oral 0 1500 Physical Exam General Appearance: Alert, Oriented X3, Cooperative HEENT: Atraumatic, PERRLA, EOMI, Mucous Membr. moist/pink Cardiovascular: Regular Rate, Normal S1, Normal S2, No Murmurs Lungs: Clear to Auscultation, Normal Air Movement Abdomen: Normal Bowel Sounds, Soft, No Tenderness Extremities: No Cyanosis, No Edema Current Medications: Current Medications Sig/[place] Start time Last Medication Dose Route Stop Time Status Admin Atorvastatin Calcium 20 MG AT BEDTIME 01/310 DCD 01/31 PO 204 Chlorhexidine 1 GM .STK-MED ONE 02/01 0900 DC Gluconate TOP 02/01 09 Metoprolol Tartrate 50 MG BID 01/31 1000 DCD 02/01 PO 111 Polyethylene Glycol 1 GAL ONCE ONE 01/31 2100 DC 01/31 PO 01/31 2101 204 Sertraline HCl 25 MG DAILY 01/31 1000 DCD 02/01 PO 111 Last 24 Hrs of Lab/[facility] Results Last 24 Hrs of Labs/Mics: Laboratory Tests 02/01/17 0715: CBC w Diff NO MAN DIFF REQ, RBC 3.73 L, MCV 88.7, MCH 29.7, RDW 15.4 H, MPV 8.7, Gran % 56.5, Lymphocytes % 34.2, Monocytes % 6.6, Eosinophils % 2.4, Basophils % 0.3, Absolute Granulocytes 6.3, Absolute Lymphocytes 3.8 H, Absolute Monocytes 0.7 H, Absolute Eosinophils 0.3, Absolute Basophils 0, PUBS MCHC 33.5 Assessment/Plan Assessment: Ms. Britton is a 71 year-old Ukrainian speaking lady with a PMH significant for early stage dementia, HTN, and HLD, recently admitted recently to [facility] for pneumonia, who presents this time c/o 3 episodes of hematochezia. # Hematochezia CT abd/pelvis (01/30): Moderate to large amount of stool in the rectum, which could reflect fecal impaction. No evidence of bowel obstruction or inflammation. She had stable H&H since admission. She went for colonoscopy earlier today and the result was; 1. Mild to moderate internal hemorrhoids, without any active bleeding (which seem to have been the cause of the admission). 2. Fairly extensive left-sided diverticula, with tortuous lumen. 3. 1.2 cm sessile left colon polyp at 45 cm, positive by NBI, completely removed via hot snare polypectomy, using 25 W/pure coag, and retrieved via suction: (Specimen A). 4. 4 mm sessile left colon polyp at 35 cm, positive by NBI, completely removed via cold biopsies: * stable and will most likely be discharged today * The patient's daughter/POA, Koby Higgins, was advised to contact GI within 2 weeks for the pathology results # History of HTN * Continue metoprolol #Hyperlipidemia * Continue statin # History of dementia with anxiety * Continue home dose of Zoloft * Hold olanzapine - Regular diet - Mild painpathway - DVT prophylaxis with ALPS only - Full code Problem List: 1. Lower GI bleed Pain Ratin Pain Location: na Pain Goal: Remain pain free Pain Plan: See A&P Tomorrow's Labs & Rationales: None as patient most likely discharge later today DOMONIQUE STEVE 02/01/17 1129: Attending MD Review Statement Attending Statement Attending MD Statement: examined this patient, discuss w/resident/PA/WET AND DRY SUGAR BIN OPERATOR, agreed w/resident/PA/WET AND DRY SUGAR BIN OPERATOR, discussed with family, reviewed EMR data (avail), discussed with nursing, discussed with case mgmt, reviewed images Attending Assessment/Plan: ASSESSMENT 1. BRBPR 2. dizziness 3. Hypertension 4. As per PMH PLAN - Admitted to inpatient medical services. - GI consulted, patient underwent colonscopy showed internal hemorrohoids and colon polyps s/p polypectomy. f/u GI o/p in 2 weeks. - d/wed family, d/c home today
[2017-02-01 11:15] VITALS: BP 138/66
--- NOTE | 2017-02-01 14:51 | Discharge Summary ---
Visit Information Visit Dates Admission Date: 01/30/17 Discharge Date: 02/01/17 Hospital Course Course Attending Physician: DOMONIQUE STEVE MD Primary Care Physician: LUDMILA SINGH [facility] Course: Ms. Britton is a 71 year-old Occitan speaking lady with a PMH significant for early stage dementia, HTN, and HLD, recently admitted to [facility] for pneumonia, who presented because of 3 episodes of hematochezia. # Hematochezia CT abd/pelvis (01/30): Showed moderate to large amount of stool in the rectum, which could reflect fecal impaction. No evidence of bowel obstruction or inflammation. She had stable H&H since admission until discharge. We did colonoscopy and the result was; 1. Mild to moderate internal hemorrhoids, without any active bleeding (which seem to have been the cause of the admission). 2. Fairly extensive left-sided diverticula, with tortuous lumen. 3. 1.2 cm sessile left colon polyp at 45 cm, positive by NBI, completely removed via hot snare polypectomy, using 25 W/pure coag, and retrieved via suction: (Specimen A). 4. 4 mm sessile left colon polyp at 35 cm, positive by NBI, completely removed via cold biopsies: On discharge patient was stable with no active complaints. The patient's daughter/POA, Koby Higgins, was advised to contact GI within 2 weeks for the pathology results. # HTN : We Continued metoprolol # Hyperlipidemia: We Continued statin # dementia with anxiety: We continued home dose of Zoloft but we held olanzapine Allergies: Coded Allergies: No Known Allergies (01/30/17) Disposition Summary Disposition Principal Diagnosis: Low GI bleed Additional Diagnosis: Anemia Discharge Disposition: home or self care Discharge Instructions General Discharge Information Code Status: Full Code Patient's Diet: Regular with fibers as tolerated Patient's Activity: As tolerated Follow-Up Instructions/Appts: Instructed to follow with PCP and GI within 2 weeks of discharge. Medications at Discharge Discharge Medications: Continue taking these medications: Amlodipine Besylate (Amlodipine Besylate) 2.5 MG TABLET 1 Tablet ORAL Every Morning Qty = 30 Comments: NOT GIVEN Metoprolol Tartrate (Metoprolol Tartrate) 50 MG TABLET 1 Tablet ORAL TWICE DAILY Qty = 180 Comments: Last Taken: 02/01/17 Time: 1100AM Sertraline HCl (Sertraline HCl) 25 MG TABLET 1 Tablet ORAL DAILY Qty = 30 Comments: Last Taken: 02/01/17 Time: 1100PM Atorvastatin Calcium (Atorvastatin Calcium) 20 MG TABLET 1 Tablet ORAL TAKE AT BEDTIME Qty = 30 Comments: Last Taken: 01/31/17 Time: 2200PM Cholecalciferol (Vitamin D3) (Vitamin D) 2,000 UNIT CAPSULE 1 Tablet ORAL DAILY Comments: NOT GIVEN Copies To: EBEN LUO,ABBY Ford; TESS MCDONALD,LUDMILA HERNANDEZ
== END 2017-02-01 12:36 | DRG 253 ==
LOC: ENRESERVTM → ENRESERVDT → ERH 18:04 → 2NB 21:12 → ERHI 21:12 → ENPENDDIS 21:12 → 2NB 22:41
PROVIDERS: Emergency Medicine; Internal Medicine; Student in an Organized Health Care Education/Training Program; ADMIT Internal Medicine
PROC: 0DBG8ZX Excision of Left Large Intestine, Via Natural or Artificial Opening Endoscopic, Diagnostic (ICD-10-PCS; principal; 2017-02-01)
DX: K92.2 Gastrointestinal hemorrhage, unspecified (principal); F03.90 Unspecified dementia, unspecified severity, without behavioral disturbance, psychotic disturbance, mood disturbance, and anxiety; I10 Essential (primary) hypertension; E78.5 Hyperlipidemia, unspecified; D12.4 Benign neoplasm of descending colon
CPT/HCPCS: 2NBSP; 36415; 81001; 82436; 88305; 93005; 93010